=== PATIENT | female | born 1945 | race Caucasian/White ===

== ENCOUNTER 2016-11-25 12:11 | Inpatient (IN) | payer MEDICARE, BC ==
[2016-11-25] MEDS ORDERED: Loratadine 10 MG Tab PO PRN (16:49)
[2016-11-25] MEDS ORDERED: Fluticasone Propionate Nasal Spray 16 GM Bottle NASBOTH PRN (16:49)
[2016-11-25] MEDS ORDERED: guaiFENesin 600 MG Tab.ER PO PRN (16:49)
[2016-11-25] MEDS ORDERED: VANCOMYCIN IV SCH (17:00)
[2016-11-25] MEDS ORDERED: [UNRECOGNIZED DRUG - OTHER] IV SCH (17:00)
[2016-11-25] MEDS ORDERED: SOD CHLORIDE IV SCH (17:00)
[2016-11-25] MEDS ORDERED: Albuterol 8 GM Inhaler INH PRN (17:11)
[2016-11-25] MEDS: Atropine/Diphenoxylate 0.025-2.5 MG Tab PO PRN (17:29)
[2016-11-25] MEDS ORDERED: Nystatin Susp 100,000 Unit/ML 5 ML UD Cup PO SCH (17:30)
[2016-11-25] MEDS ORDERED: Nitroglycerin 0.4 MG Tab.SL SL PRN (18:00)
[2016-11-25] MEDS: Piperacillin/Tazobactam 4.5 GM Vial IV SCH (18:23)
[2016-11-25] MEDS: Albuterol 0.083% 2.5 MG/3 ML Neb Soln NEB PRN (18:24)
[2016-11-25] MEDS ORDERED: Dextran 70/Hypromellose/PF Ophth Soln 0.9 ML UD EYEBOTH PRN (18:30)
[2016-11-25] MEDS ORDERED: NEPAFENAC EYERT SCH (20:00)
[2016-11-25] MEDS ORDERED: Formoterol/Mometasone 200-5 MCG 8.8 GM Inhaler IH SCH (20:00)
[2016-11-25] MEDS: Sodium Chloride 0.9% 10 ML Syringe IV SCH (20:26)
[2016-11-25] MEDS: Cholecalciferol (Vitamin D3) 1,000 Unit Tab PO SCH (20:27)
[2016-11-25] MEDS: Carvedilol 12.5 MG Tab PO SCH (20:27)
[2016-11-25] MEDS: Nystatin Susp 100,000 Unit/ML 5 ML UD Cup PO SCH (20:28)
[2016-11-25] MEDS: Loperamide 2 MG Cap PO PRN (20:37)
[2016-11-25] MEDS: Heparin Sodium 100 Units/ML 3 ML Syringe IVPUSH SCH (21:41)
--- NOTE | 2016-11-26 00:39 | HP ---
DIAGNOSES: 1. MRSA pneumonia. 2. Severe chronic obstructive pulmonary disease. 3. Hypokalemia. 4. Hypertension. 5. Coronary artery disease. 6. Chronic anxiety disorder. 7. Chronic depression. 8. Diastolic congestive heart failure. 9. Chronic constipation. 10.History of thrush. SUMMARY OF ADMIT HISTORY AND PHYSICAL: The patient is a 71-year-old female who is transferred from [facility], after having been admitted there on 11/15/2016 until 11/25/2016 with suspect sepsis with pneumonia, which was found to be MRSA pneumonia. 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 She has had lung reduction surgery. She is noted to have severe COPD, oxygen dependent, hypertension, coronary artery disease. She was treated with Zosyn and then vancomycin was added. The patient was felt to need another 2 weeks worth of IV antibiotics. She did have a low potassium of 2.8 a day prior to discharge and that was increased with oral replacement. She was also treated with nystatin for some oral thrush and she has had some prednisone 40 mg daily for 5 days. The patient was treated with Vest to help improve removal of respiratory secretions and she presents for continued IV therapy with a PICC line present. Her medications at the time of transfer Lomotil 2.5/0.025 one pill 3 times a day as needed for diarrhea; Imodium 2 mg 2 capsules after first loose stool, then 1 p.r.n., no more than 8 per day; Nystatin 100 units/mL, she takes 5 mL 4 times a day for a total of 5 days; Zosyn 4.5 g every 8 hours for 19 days; sodium flushes per PICC line protocol; Spiriva 18 mcg capsules 1 puff daily; fluticasone nasal spray 1 sprain in the morning and in the evening if needed; Advair 250/50 one puff twice a day; potassium chloride 10 mEq 3 tablets daily for 3 days, then 1 tablet twice a day, which is her baseline dose; acapella inhaler 1 puff every 4 hours as needed; Tylenol 500 mg every 4 hours as needed; albuterol nebs 2.5 mg every 4 hours as needed; albuterol HFA 2 puffs every 4 hours as needed; aspirin 81 mg 1 pill daily; calcium with D 1500/800 one pill daily; carvedilol 12.5 mg half a pill in the morning, 1 pill in the evening; vitamin B12 1000 mcg 1 tablet daily; Prolia infusion 60 mg every 6 months; furosemide 40 mg half a pill Tuesday, Tuesday, Tuesday, one pill Tuesday, , Tuesday, Tuesday; guaifenesin 600 mg SR 1 pill twice a day as needed; loratadine 10 mg 1 pill daily as needed; losartan 100 mg 1 pill daily, nitroglycerin 0.3 mg sublingual q.5h minutes x3 p.r.n., omeprazole 20 mg 1 pill daily; oxygen therapy at 2 L at night, 4 L with activity; Sustain eyedrops 1 drop both eyes, every 4 hours, as needed; MiraLAX half a scoop in 8 ounces of water daily; Crestor 5 mg 1 pill daily; sertraline 100 mg 1 pill daily, vitamin D 3000 units 2 pills twice a day. To note, Lovenox will also be given for her. ALLERGIES: Leads, lisinopril, mold, panchito, felodipine, seasonal allergies, and environmental. PAST MEDICAL HISTORY: The patient has severe COPD. She had lung reduction surgery at [place] in 2010, on home oxygen. She was not a candidate for lung transplant due to Mycobacterium avium complex noted in [address]. She has had allergic rhinitis, amblyopia, anxiety, hyperventilation, arthritis, cataracts, chronic diastolic heart dysfunction. Echo on 01/04/2013 had ejection fraction 65%. She has mild pulmonary hypertension. She has had claudication of both extremities. LINDA testing done on 08/11/2016 came back normal. She has coronary artery disease. On 01/27/2010, she had 1 stent in her RCA at [place]; on 01/05/2013, had LAD, 1 drug-eluting stent on Plavix, more cardiac cath noted CT 11/2014, no disease. I am not certain when her Plavix was discontinued. She is on oxygen. She has had urticaria. She has had osteopenia, but was started on Fosamax due to possible surgery, was switched Prolia due to dyspepsia. She has had diverticula of colon, eczema, hypertension, gastroesophageal reflux disease, remote H-pylori infection. Colonoscopy on 01/29/2011. She had H-pylori in 2006. She has had MRSA in 2016, but she had negative test x2. She had hyperlipidemia, on Crestor. She has irritable bowel syndrome. 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 Mycobacterium infection in 2011, recurred in 2016, she has had neck pain, C5-6 radiation with epidural shot. She has had allergic rhinitis. Osteoporosis was in 2016 where she had been switched to Prolia infusions. She has had hypercholesterolemia, restless legs syndrome, toenail deformity, uveitis, vitamin B12 deficiency, vitamin D deficiency. PAST SURGICAL HISTORY: She had a breast lumpectomy on the right in 1987. Cataract surgery. She has had cholecystectomy. Colonoscopy was in 2010, next one was to be 10 years. She has had Dupuytren's release. She has had removal of lung on the right on 06/04/2011. She has had a cardiac stent, RCA in 2009; at [place] in 2012, LAD. FAMILY MEDICAL HISTORY: Mother has had heart disease and type 2 diabetes mellitus, and cataracts. Son has had rheumatoid arthritis. Sister has strabismus, retinal problems. SOCIAL HISTORY: The patient is . She formerly smoke. She quit in 2001. She has children. REVIEW OF SYSTEMS: Her mouth is better. She does have a chronic cough. No headache. She does have bruising from her PICC line. No nausea. She did have some diarrhea, no incontinence, no joint swelling, slight weakness of her lower extremities. She has been sleeping okay. She wears portable oxygen. Her weight has stayed the same. She does have some bruising. No headaches, no blurry vision, no double vision, no soreness in her mouth, no cough. Does get short of breath with activity. No chest pain. No breast masses. Does have occasional nausea. Does have diarrhea. No burning with urination. No swelling of extremities. No swollen joints. Does have some pain throughout her body. Does feel fatigued. Does get worried and anxious at times. PHYSICAL EXAMINATION: Vital Signs: Show that her height is 1.6 m. Her temperature is 36.8, pulse 75, blood pressure 126/72, respirations 16, sats 93% on 3 L. Skin: She has some bruising by her forearms and her legs. Her skin is noted to be pale. HEENT: Conjunctivae are clear. Pharynx is normal with moist mucous membranes. No thrush seen. Neck: Supple. No anterior cervical lymphadenopathy. No thyromegaly. Heart: Regular rate and rhythm without murmurs or bruits. Lungs: Have diminished breath sounds at bases but there is air exchange noted on bases. Breast exam: Deferred. Abdomen: Soft, nontender. No hepatosplenomegaly. Rectal: Deferred. Genital: Deferred. Extremities: Slender, thin. Neurologic: She moves all extremities symmetric. Psychiatric: She is alert, pleasant to visit with. Slightly anxious, does not maintain good eye contact. IMPRESSION: 1. MRSA pneumonia. 2. Severe chronic obstructive pulmonary disease. 3. Hypertension. 4. Chronic diastolic congestive heart failure. 5. Hypokalemia, recent. 6. Hypercholesterolemia. 7. Osteoporosis. PLAN: The patient will be placed on swing bed. She will receive her IV vancomycin and Zosyn per protocol until I believe 12/06/2016. She will have weekly CBC, AST monitoring. I will check lab work tomorrow on the patient. We will check a chest x-ray tomorrow as well to get a baseline here. I will have Technology Lab Teacher see the patient. The patient is code level 3 status, which means DNR/DNI, but will treat medical problems. Anticipate the patient to return home with her . The patient is using a flutter valve to help with lung expansion. To note, she had a Vest on when she was in [place] which did seem to help. The patient will be continued on Lovenox until she is ready to be discharged home. While she is on Lovenox, she will not need to have Plavix, but we will need to verify about Plavix use for patient. To note, the patient does have severe lung disorders and she is susceptible to having further worsening of her basic lung condition and she could possibly could have a prolonged recovery from her pneumonia or possibly from her current pneumonia process due to not much lung tissue that is working. The patient is placed in isolation because of her MRSA diagnosis at the present time. GM11/25/2016 17:27:59 MODL: 11/26/2016 00:13:30 /[id number]
[2016-11-26] MEDS ORDERED: Piperacillin/Tazobactam 3.375 GM in Sodium Chloride 0.9% 100 ML IV SCH ×2 (02:00→10:00)
[2016-11-26] MEDS: Sodium Chloride 0.9% 10 ML Syringe IV SCH ×4 (02:48→19:06)
[2016-11-26] MEDS: Piperacillin/Tazobactam 4.5 GM Vial IV SCH (03:15)
[2016-11-26] MEDS: ADVAIR INH SCH ×2 (06:23→19:57)
[2016-11-26] MEDS: TIOTROPIUM 18 MCG INH SCH (06:24)
[2016-11-26] MEDS: Heparin Sodium 100 Units/ML 3 ML Syringe IVPUSH SCH ×3 (06:47→19:06)
[2016-11-26] MEDS: Albuterol 0.083% 2.5 MG/3 ML Neb Soln NEB PRN ×3 (07:13→14:49)
[2016-11-26] MEDS ORDERED: Polyethylene Glycol 3350 Powder 238 GM Bot PO SCH (08:00)
[2016-11-26] MEDS ORDERED: Piperacillin/Tazobactam 4.5 GM in Sodium Chloride 0.9% 100 ML IV SCH (08:00)
[2016-11-26] MEDS: Sertraline 100 MG Tab PO SCH (08:03)
[2016-11-26] MEDS: Carvedilol 6.25 MG Tab PO SCH (08:03)
[2016-11-26] MEDS: Cholecalciferol (Vitamin D3) 1,000 Unit Tab PO SCH ×2 (08:03→19:54)
[2016-11-26] MEDS: Aspirin 81 MG Tab.EC PO SCH (08:03)
[2016-11-26] MEDS: Losartan 50 MG Tab PO SCH (08:04)
[2016-11-26] MEDS: Potassium Chloride 10 MEQ Tab.ER PO SCH (08:04)
[2016-11-26] MEDS: atorvaSTATin 10 MG Tab PO SCH (08:04)
[2016-11-26] MEDS: Loperamide 2 MG Cap PO PRN (08:04)
[2016-11-26] MEDS: Omeprazole 20 MG Cap.CR PO SCH (08:04)
[2016-11-26] MEDS: Nystatin Susp 100,000 Unit/ML 5 ML UD Cup PO SCH ×4 (08:05→19:54)
[2016-11-26] MEDS: Enoxaparin 30 MG/0.3 ML Syringe SUBCUT SCH (08:05)
[2016-11-26] MEDS: Calcium Carbonate/Vitamin D3 1250 MG-200 Unit Tab PO SCH (08:05)
[2016-11-26] MEDS: Cyanocobalamin (Vitamin B12) 1,000 MCG Tab PO SCH (08:05)
[2016-11-26] MEDS: Polyethylene Glycol 3350 Powder 17 GM Packet PO SCH (08:06)
[2016-11-26 08:31] LABS: CHLORIDE,CL 109 mmol/L (98-107); SODIUM,NA 144 mmol/L (136-145)
[2016-11-26] MEDS ORDERED: Furosemide 40 MG Tab PO SCH (09:00)
[2016-11-26] MEDS: Fluticasone Propionate Nasal Spray 16 GM Bottle NASBOTH SCH (09:07)
[2016-11-26] MEDS: Piperacillin/Tazobactam 4.5 GM in Sodium Chloride 0.9% 100 ML IV SCH ×2 (15:42→23:55)
[2016-11-26] MEDS: Carvedilol 12.5 MG Tab PO SCH (19:55)
[2016-11-27] MEDS: Sodium Chloride 0.9% 10 ML Syringe IV SCH ×4 (03:13→18:20)
[2016-11-27] MEDS: Heparin Sodium 100 Units/ML 3 ML Syringe IVPUSH SCH ×4 (03:14→18:20)
[2016-11-27] MEDS: ADVAIR INH SCH ×2 (06:20→19:25)
[2016-11-27] MEDS: TIOTROPIUM 18 MCG INH SCH (06:20)
[2016-11-27] MEDS: Albuterol 0.083% 2.5 MG/3 ML Neb Soln NEB PRN ×3 (07:19→20:27)
[2016-11-27] MEDS: Calcium Carbonate/Vitamin D3 1250 MG-200 Unit Tab PO SCH (07:35)
[2016-11-27] MEDS: Piperacillin/Tazobactam 4.5 GM in Sodium Chloride 0.9% 100 ML IV SCH ×3 (07:35→23:28)
[2016-11-27] MEDS: Losartan 50 MG Tab PO SCH (07:36)
[2016-11-27] MEDS: Aspirin 81 MG Tab.EC PO SCH (07:36)
[2016-11-27] MEDS: Cholecalciferol (Vitamin D3) 1,000 Unit Tab PO SCH ×2 (07:36→19:28)
[2016-11-27] MEDS: Omeprazole 20 MG Cap.CR PO SCH (07:36)
[2016-11-27] MEDS: Cyanocobalamin (Vitamin B12) 1,000 MCG Tab PO SCH (07:37)
[2016-11-27] MEDS: atorvaSTATin 10 MG Tab PO SCH (07:37)
[2016-11-27] MEDS: Sertraline 100 MG Tab PO SCH (07:37)
[2016-11-27] MEDS: Carvedilol 6.25 MG Tab PO SCH (07:37)
[2016-11-27] MEDS: Enoxaparin 30 MG/0.3 ML Syringe SUBCUT SCH (07:38)
[2016-11-27] MEDS: Potassium Chloride 10 MEQ Tab.ER PO SCH (07:38)
[2016-11-27] MEDS: Nystatin Susp 100,000 Unit/ML 5 ML UD Cup PO SCH ×4 (07:38→19:26)
[2016-11-27] MEDS: Polyethylene Glycol 3350 Powder 17 GM Packet PO SCH (07:41)
[2016-11-27] MEDS: Fluticasone Propionate Nasal Spray 16 GM Bottle NASBOTH SCH (07:42)
[2016-11-27] MEDS: Furosemide 40 MG Tab PO SCH (09:11)
[2016-11-27] MEDS: Carvedilol 12.5 MG Tab PO SCH (19:28)
[2016-11-27] MEDS: guaiFENesin 600 MG Tab.ER PO SCH (19:28)
[2016-11-28] MEDS: Heparin Sodium 100 Units/ML 3 ML Syringe IVPUSH SCH ×4 (01:47→18:02)
[2016-11-28] MEDS: Sodium Chloride 0.9% 10 ML Syringe IV SCH ×3 (01:47→18:01)
[2016-11-28] MEDS: ADVAIR INH SCH ×2 (06:08→19:54)
[2016-11-28] MEDS: TIOTROPIUM 18 MCG INH SCH (06:09)
[2016-11-28] MEDS: Albuterol 0.083% 2.5 MG/3 ML Neb Soln NEB PRN ×3 (07:19→19:52)
[2016-11-28] MEDS: Piperacillin/Tazobactam 4.5 GM in Sodium Chloride 0.9% 100 ML IV SCH ×2 (07:20→15:04)
[2016-11-28] MEDS: atorvaSTATin 10 MG Tab PO SCH (07:33)
[2016-11-28] MEDS: Fluticasone Propionate Nasal Spray 16 GM Bottle NASBOTH SCH (07:33)
[2016-11-28] MEDS: Omeprazole 20 MG Cap.CR PO SCH (07:34)
[2016-11-28] MEDS: guaiFENesin 600 MG Tab.ER PO SCH ×2 (07:34→19:53)
[2016-11-28] MEDS: Cholecalciferol (Vitamin D3) 1,000 Unit Tab PO SCH ×2 (07:34→19:53)
[2016-11-28] MEDS: Calcium Carbonate/Vitamin D3 1250 MG-200 Unit Tab PO SCH (07:34)
[2016-11-28] MEDS: Losartan 50 MG Tab PO SCH (07:34)
[2016-11-28] MEDS: Carvedilol 6.25 MG Tab PO SCH (07:34)
[2016-11-28] MEDS: Potassium Chloride 10 MEQ Tab.ER PO SCH (07:35)
[2016-11-28] MEDS: Sertraline 100 MG Tab PO SCH (07:35)
[2016-11-28] MEDS: Enoxaparin 30 MG/0.3 ML Syringe SUBCUT SCH (07:35)
[2016-11-28] MEDS: Nystatin Susp 100,000 Unit/ML 5 ML UD Cup PO SCH ×4 (07:35→19:52)
[2016-11-28] MEDS: Aspirin 81 MG Tab.EC PO SCH (07:35)
[2016-11-28] MEDS: Cyanocobalamin (Vitamin B12) 1,000 MCG Tab PO SCH (07:35)
[2016-11-28] MEDS: Polyethylene Glycol 3350 Powder 17 GM Packet PO SCH (07:36)
[2016-11-28] MEDS: Furosemide 40 MG Tab PO SCH (08:22)
[2016-11-28] MEDS: Carvedilol 12.5 MG Tab PO SCH (19:53)
[2016-11-29] MEDS: Sodium Chloride 0.9% 10 ML Syringe IV SCH ×5 (00:06→20:58)
[2016-11-29] MEDS: Piperacillin/Tazobactam 4.5 GM in Sodium Chloride 0.9% 100 ML IV SCH ×4 (00:08→23:42)
[2016-11-29] MEDS: Heparin Sodium 100 Units/ML 3 ML Syringe IVPUSH SCH ×5 (03:10→20:58)
[2016-11-29] MEDS: ADVAIR INH SCH ×2 (06:21→20:55)
[2016-11-29] MEDS: TIOTROPIUM 18 MCG INH SCH (06:22)
[2016-11-29] MEDS: Albuterol 0.083% 2.5 MG/3 ML Neb Soln NEB PRN ×3 (07:35→20:56)
[2016-11-29] MEDS ORDERED: Potassium Chloride 10 MEQ Tab.ER PO SCH (08:00)
[2016-11-29] MEDS: Enoxaparin 30 MG/0.3 ML Syringe SUBCUT SCH (08:45)
[2016-11-29] MEDS: Nystatin Susp 100,000 Unit/ML 5 ML UD Cup PO SCH ×4 (08:46→20:55)
[2016-11-29] MEDS: Sertraline 100 MG Tab PO SCH ×2 (08:46→09:07)
[2016-11-29] MEDS: Omeprazole 20 MG Cap.CR PO SCH (08:47)
[2016-11-29] MEDS: Losartan 50 MG Tab PO SCH (08:47)
[2016-11-29] MEDS: guaiFENesin 600 MG Tab.ER PO SCH ×2 (08:47→20:54)
[2016-11-29] MEDS: atorvaSTATin 10 MG Tab PO SCH (08:48)
[2016-11-29] MEDS: Aspirin 81 MG Tab.EC PO SCH (08:48)
[2016-11-29] MEDS: Calcium Carbonate/Vitamin D3 1250 MG-200 Unit Tab PO SCH (08:48)
[2016-11-29] MEDS: Polyethylene Glycol 3350 Powder 17 GM Packet PO SCH (08:49)
[2016-11-29] MEDS: Cyanocobalamin (Vitamin B12) 1,000 MCG Tab PO SCH (08:49)
[2016-11-29] MEDS: Cholecalciferol (Vitamin D3) 1,000 Unit Tab PO SCH ×2 (08:49→20:54)
[2016-11-29] MEDS: Fluticasone Propionate Nasal Spray 16 GM Bottle NASBOTH SCH (08:50)
[2016-11-29] MEDS ORDERED: Furosemide 20 MG Tab PO SCH (09:00)
[2016-11-29] MEDS: Carvedilol 6.25 MG Tab PO SCH (09:07)
[2016-11-29] MEDS: Carvedilol 12.5 MG Tab PO SCH ×2 (09:39→17:12)
--- NOTE | 2016-11-29 11:39 | PN ---
Progress Note for CHE HOLMAN Date: 11/29/2016 Room #: VM.212 SUBJECTIVE: The patient says that she has been feeling a little more tired. Her mood does feel a bit more down. She has been chronically on Zoloft and she has been on the same dose for quite some time. It is noted that her blood pressures have been running a little bit higher. Her oxygen sats this morning were low down to 84 while she was having the nebulized treatment without oxygen, but then oxygen was replaced and it did come back better. OBJECTIVE: Vital Signs: Her blood pressure is 150/84 this morning. Her pulse is 66, temperature is 36.4, respiratory rate is 20, and sats are 95 on 3 L. General: She appears little bit down. Skin: Pale. She has some bruising. Her right great toe does have granulation tissue at the base with some serosanguineous drainage. Heart: Regular rate and rhythm. Lungs: Clear to auscultation. Abdomen: Soft. Extremities: Cool. LABORATORY DATA: Her lab that has been drawn; her hemoglobin was 9.8, which is stable, white blood cell count 8.5, with platelets 185. AST was 21, CK was 18. Her vancomycin trough yesterday was elevated at 36. IMPRESSION: 1. Methicillin-resistant Staphylococcus aureus pneumonia. 2. Hypertension. 3. Anemia of chronic disease. 4. Granulation tissue of right great toe with next Methicillin-resistant Staphylococcus aureus pneumonia. 5. Severe chronic obstructive pulmonary disease. 6. Chronic depression. PLAN: We will increase her Zoloft to 150 mg a day. We will increase her carvedilol to 12.5 mg b.i.d. We will start doing daily soaks for her toe to see if this can help it heal up and vancomycin levels to be managed with pharmacy. The patient is to be on IV antibiotics until December 07, 2016. GM11/29/2016 08:23:41 MODL: 11/29/2016 10:42:01 /[id number]
[2016-11-29] MEDS: Potassium Chloride 10 MEQ Tab.ER PO SCH (17:13)
[2016-11-29] MEDS ORDERED: Carvedilol 12.5 MG Tab PO SCH (18:00)
[2016-11-29] MEDS: Acetaminophen 500 MG Tab PO PRN (20:54)
[2016-11-30] MEDS: Sodium Chloride 0.9% 10 ML Syringe IV SCH ×3 (03:27→17:32)
[2016-11-30] MEDS: Heparin Sodium 100 Units/ML 3 ML Syringe IVPUSH SCH ×4 (03:27→18:16)
[2016-11-30] MEDS: ADVAIR INH SCH ×2 (06:14→19:26)
[2016-11-30] MEDS: TIOTROPIUM 18 MCG INH SCH (06:15)
[2016-11-30] MEDS: Albuterol 0.083% 2.5 MG/3 ML Neb Soln NEB PRN ×4 (07:16→19:26)
[2016-11-30] MEDS: Calcium Carbonate/Vitamin D3 1250 MG-200 Unit Tab PO SCH (07:47)
[2016-11-30] MEDS: Aspirin 81 MG Tab.EC PO SCH (07:47)
[2016-11-30] MEDS: Potassium Chloride 10 MEQ Tab.ER PO SCH ×2 (07:47→17:31)
[2016-11-30] MEDS: Piperacillin/Tazobactam 4.5 GM in Sodium Chloride 0.9% 100 ML IV SCH ×2 (07:47→15:22)
[2016-11-30] MEDS: Cyanocobalamin (Vitamin B12) 1,000 MCG Tab PO SCH (07:47)
[2016-11-30] MEDS: Cholecalciferol (Vitamin D3) 1,000 Unit Tab PO SCH ×2 (07:47→19:25)
[2016-11-30] MEDS: Omeprazole 20 MG Cap.CR PO SCH (07:48)
[2016-11-30] MEDS: Furosemide 20 MG Tab PO SCH (07:48)
[2016-11-30] MEDS: atorvaSTATin 10 MG Tab PO SCH (07:48)
[2016-11-30] MEDS: Losartan 50 MG Tab PO SCH (07:48)
[2016-11-30] MEDS: Sertraline 100 MG Tab PO SCH (07:48)
[2016-11-30] MEDS: guaiFENesin 600 MG Tab.ER PO SCH ×2 (07:49→19:25)
[2016-11-30] MEDS: Carvedilol 12.5 MG Tab PO SCH ×2 (07:49→17:31)
[2016-11-30] MEDS: Enoxaparin 30 MG/0.3 ML Syringe SUBCUT SCH (07:49)
[2016-11-30] MEDS: Fluticasone Propionate Nasal Spray 16 GM Bottle NASBOTH SCH (07:50)
[2016-11-30] MEDS: Nystatin Susp 100,000 Unit/ML 5 ML UD Cup PO SCH ×3 (07:51→15:23)
[2016-11-30] MEDS: Polyethylene Glycol 3350 Powder 17 GM Packet PO SCH (07:51)
--- NOTE | 2016-11-30 08:36 | PCM.SN ---
- Free Text/Narrative Note: BP is increasing. She used to be on amlodipine. Despite increasing coreg yesterday, her BP today is high. Will resume amlodipine at 5 mg dialy.
[2016-11-30] MEDS ORDERED: Vancomycin 500 MG SDV ONE (10:05)
[2016-11-30] MEDS ORDERED: Sodium Chloride 0.9% 100 ML ONE (10:05)
[2016-11-30] MEDS: amLODIPine 5 MG Tab PO SCH (10:07)
[2016-11-30] MEDS: Acetaminophen 500 MG Tab PO PRN (19:25)
[2016-12-01] MEDS: Piperacillin/Tazobactam 4.5 GM in Sodium Chloride 0.9% 100 ML IV SCH ×4 (00:56→23:01)
[2016-12-01] MEDS: Sodium Chloride 0.9% 10 ML Syringe IV SCH ×3 (02:00→20:21)
[2016-12-01] MEDS: Heparin Sodium 100 Units/ML 3 ML Syringe IVPUSH SCH ×3 (03:00→20:22)
[2016-12-01] MEDS: ADVAIR INH SCH ×2 (06:13→19:48)
[2016-12-01] MEDS: TIOTROPIUM 18 MCG INH SCH (06:14)
[2016-12-01] MEDS: Albuterol 0.083% 2.5 MG/3 ML Neb Soln NEB PRN ×4 (07:15→19:48)
[2016-12-01] MEDS: Enoxaparin 30 MG/0.3 ML Syringe SUBCUT SCH (08:44)
[2016-12-01] MEDS: Furosemide 20 MG Tab PO SCH (08:45)
[2016-12-01] MEDS: amLODIPine 5 MG Tab PO SCH (08:45)
[2016-12-01] MEDS: Aspirin 81 MG Tab.EC PO SCH (08:45)
[2016-12-01] MEDS: Cholecalciferol (Vitamin D3) 1,000 Unit Tab PO SCH ×2 (08:46→19:48)
[2016-12-01] MEDS: guaiFENesin 600 MG Tab.ER PO SCH ×2 (08:46→19:48)
[2016-12-01] MEDS: Omeprazole 20 MG Cap.CR PO SCH (08:46)
[2016-12-01] MEDS: Cyanocobalamin (Vitamin B12) 1,000 MCG Tab PO SCH (08:47)
[2016-12-01] MEDS: Carvedilol 12.5 MG Tab PO SCH ×3 (08:47→17:12)
[2016-12-01] MEDS: Calcium Carbonate/Vitamin D3 1250 MG-200 Unit Tab PO SCH (08:49)
[2016-12-01] MEDS: atorvaSTATin 10 MG Tab PO SCH (08:49)
[2016-12-01] MEDS: Sertraline 100 MG Tab PO SCH (08:49)
[2016-12-01] MEDS: Losartan 50 MG Tab PO SCH (08:50)
[2016-12-01] MEDS: Potassium Chloride 10 MEQ Tab.ER PO SCH ×3 (08:50→17:13)
[2016-12-01] MEDS: Fluticasone Propionate Nasal Spray 16 GM Bottle NASBOTH SCH (08:51)
[2016-12-01] MEDS: Polyethylene Glycol 3350 Powder 17 GM Packet PO SCH (08:51)
[2016-12-01] MEDS: Loperamide 2 MG Cap PO PRN (11:53)
[2016-12-01] MEDS: Acetaminophen 500 MG Tab PO PRN (19:48)
[2016-12-02] MEDS: Sodium Chloride 0.9% 10 ML Syringe IV SCH ×3 (02:00→19:30)
[2016-12-02] MEDS: Heparin Sodium 100 Units/ML 3 ML Syringe IVPUSH SCH ×4 (03:00→19:31)
[2016-12-02] MEDS: TIOTROPIUM 18 MCG INH SCH (06:31)
[2016-12-02] MEDS: ADVAIR INH SCH ×2 (06:33→19:51)
[2016-12-02] MEDS: Albuterol 0.083% 2.5 MG/3 ML Neb Soln NEB PRN ×4 (07:22→19:47)
[2016-12-02] MEDS: Enoxaparin 30 MG/0.3 ML Syringe SUBCUT SCH (07:49)
[2016-12-02] MEDS: Calcium Carbonate/Vitamin D3 1250 MG-200 Unit Tab PO SCH (07:50)
[2016-12-02] MEDS: Carvedilol 12.5 MG Tab PO SCH ×2 (07:51→18:13)
[2016-12-02] MEDS: Furosemide 20 MG Tab PO SCH (07:51)
[2016-12-02] MEDS: Sertraline 100 MG Tab PO SCH (07:53)
[2016-12-02] MEDS: Aspirin 81 MG Tab.EC PO SCH (07:53)
[2016-12-02] MEDS: Losartan 50 MG Tab PO SCH (07:54)
[2016-12-02] MEDS: amLODIPine 5 MG Tab PO SCH (07:55)
[2016-12-02] MEDS: Omeprazole 20 MG Cap.CR PO SCH (07:55)
[2016-12-02] MEDS: guaiFENesin 600 MG Tab.ER PO SCH ×2 (07:55→19:37)
[2016-12-02] MEDS: Cholecalciferol (Vitamin D3) 1,000 Unit Tab PO SCH ×2 (07:55→19:38)
[2016-12-02] MEDS: atorvaSTATin 10 MG Tab PO SCH (07:55)
[2016-12-02] MEDS: Potassium Chloride 10 MEQ Tab.ER PO SCH ×2 (07:56→18:13)
[2016-12-02] MEDS: Polyethylene Glycol 3350 Powder 17 GM Packet PO SCH (07:56)
[2016-12-02] MEDS: Cyanocobalamin (Vitamin B12) 1,000 MCG Tab PO SCH (07:56)
[2016-12-02] MEDS: Piperacillin/Tazobactam 4.5 GM in Sodium Chloride 0.9% 100 ML IV SCH ×2 (07:57→16:09)
[2016-12-02] MEDS: Loperamide 2 MG Cap PO PRN (07:57)
[2016-12-02] MEDS: Fluticasone Propionate Nasal Spray 16 GM Bottle NASBOTH SCH (08:04)
[2016-12-02] MEDS: ALPRAZolam 0.25 MG Tab PO PRN (09:07)
[2016-12-03] MEDS: Piperacillin/Tazobactam 4.5 GM in Sodium Chloride 0.9% 100 ML IV SCH ×3 (00:10→16:08)
[2016-12-03] MEDS: Heparin Sodium 100 Units/ML 3 ML Syringe IVPUSH SCH ×3 (03:23→19:35)
[2016-12-03] MEDS: Sodium Chloride 0.9% 10 ML Syringe IV SCH ×4 (03:23→19:35)
[2016-12-03] MEDS: Loperamide 2 MG Cap PO PRN (03:25)
[2016-12-03] MEDS: Albuterol 0.083% 2.5 MG/3 ML Neb Soln NEB PRN ×5 (03:25→20:01)
[2016-12-03] MEDS: TIOTROPIUM 18 MCG INH SCH (06:53)
[2016-12-03] MEDS: ADVAIR INH SCH ×2 (06:53→20:07)
[2016-12-03] MEDS: guaiFENesin 600 MG Tab.ER PO SCH ×2 (08:18→20:09)
[2016-12-03] MEDS: Calcium Carbonate/Vitamin D3 1250 MG-200 Unit Tab PO SCH (08:18)
[2016-12-03] MEDS: Omeprazole 20 MG Cap.CR PO SCH (08:18)
[2016-12-03] MEDS: Aspirin 81 MG Tab.EC PO SCH (08:19)
[2016-12-03] MEDS: Cholecalciferol (Vitamin D3) 1,000 Unit Tab PO SCH ×2 (08:19→20:09)
[2016-12-03] MEDS: Cyanocobalamin (Vitamin B12) 1,000 MCG Tab PO SCH (08:19)
[2016-12-03] MEDS: Potassium Chloride 10 MEQ Tab.ER PO SCH ×2 (08:19→17:42)
[2016-12-03] MEDS: atorvaSTATin 10 MG Tab PO SCH (08:19)
[2016-12-03] MEDS: Furosemide 20 MG Tab PO SCH (08:20)
[2016-12-03] MEDS: Sertraline 100 MG Tab PO SCH (08:20)
[2016-12-03] MEDS: Carvedilol 12.5 MG Tab PO SCH ×2 (08:20→17:42)
[2016-12-03] MEDS: Losartan 50 MG Tab PO SCH (08:21)
[2016-12-03] MEDS: amLODIPine 5 MG Tab PO SCH (08:21)
[2016-12-03] MEDS: Enoxaparin 30 MG/0.3 ML Syringe SUBCUT SCH (08:22)
[2016-12-03] MEDS: Polyethylene Glycol 3350 Powder 17 GM Packet PO SCH (08:23)
[2016-12-03] MEDS: Fluticasone Propionate Nasal Spray 16 GM Bottle NASBOTH SCH (08:23)
[2016-12-03] MEDS: ALPRAZolam 0.25 MG Tab PO PRN (20:09)
[2016-12-04] MEDS: Piperacillin/Tazobactam 4.5 GM in Sodium Chloride 0.9% 100 ML IV SCH ×3 (00:07→15:58)
[2016-12-04] MEDS: Sodium Chloride 0.9% 10 ML Syringe IV SCH ×3 (03:30→19:41)
[2016-12-04] MEDS: Heparin Sodium 100 Units/ML 3 ML Syringe IVPUSH SCH ×3 (03:30→19:41)
[2016-12-04] MEDS: TIOTROPIUM 18 MCG INH SCH (06:46)
[2016-12-04] MEDS: ADVAIR INH SCH ×2 (06:47→19:42)
[2016-12-04] MEDS: Albuterol 0.083% 2.5 MG/3 ML Neb Soln NEB PRN ×4 (06:57→20:16)
[2016-12-04] MEDS: Sertraline 100 MG Tab PO SCH (08:34)
[2016-12-04] MEDS: Potassium Chloride 10 MEQ Tab.ER PO SCH ×2 (08:34→18:01)
[2016-12-04] MEDS: Cholecalciferol (Vitamin D3) 1,000 Unit Tab PO SCH ×2 (08:36→19:41)
[2016-12-04] MEDS: Omeprazole 20 MG Cap.CR PO SCH (08:36)
[2016-12-04] MEDS: Aspirin 81 MG Tab.EC PO SCH (08:36)
[2016-12-04] MEDS: Furosemide 20 MG Tab PO SCH (08:37)
[2016-12-04] MEDS: atorvaSTATin 10 MG Tab PO SCH (08:37)
[2016-12-04] MEDS: Cyanocobalamin (Vitamin B12) 1,000 MCG Tab PO SCH (08:37)
[2016-12-04] MEDS: guaiFENesin 600 MG Tab.ER PO SCH ×2 (08:37→19:41)
[2016-12-04] MEDS: Calcium Carbonate/Vitamin D3 1250 MG-200 Unit Tab PO SCH (08:37)
[2016-12-04] MEDS: amLODIPine 5 MG Tab PO SCH (08:38)
[2016-12-04] MEDS: Carvedilol 12.5 MG Tab PO SCH ×2 (08:38→18:00)
[2016-12-04] MEDS: Losartan 50 MG Tab PO SCH (08:38)
[2016-12-04] MEDS: Fluticasone Propionate Nasal Spray 16 GM Bottle NASBOTH SCH (08:39)
[2016-12-04] MEDS: Enoxaparin 30 MG/0.3 ML Syringe SUBCUT SCH (08:39)
[2016-12-04] MEDS: Polyethylene Glycol 3350 Powder 17 GM Packet PO SCH (08:41)
--- NOTE | 2016-12-04 12:48 | PCM.SN ---
- Free Text/Narrative Note: S: Asked by nursing to see this patient today due to decreased breath sounds RLL and hypoxia when up and around. Patient states she has the "wet" cough still but that she cannot get the sputum all the way up. She has stable shortness of breath and no chest pain. She has not had any fever or chills. She notes that sometimes her oxygen does drop with ambulation at home as well and there is nothing really different today than other days she has had. She is also concerned about her elevated blood pressures. She does admit she may have overdone it yesterday with walking in the hallways and having visitors. O: Resting at the side of the bed in no acute distress. RRR with normal S1 and S2. No murmurs. Lungs are currently CTAB. Abdomen soft, nontender. No pedal edema. A/P: #1 MRSA Pneumonia #2 Hypoxia - In the absence of any acute changes in symptoms, oxygen saturations, and lung exams, I do not feel any further work-up is indicated at this time. - Labs from 2 days ago reviewed and stable. - CXR unlikely to be helpful in the setting of a clear lung exam. - At this point, I would continue current cares and observe. - We did review that MRSA pneumonia tends to be quite severe and it will likely take her quite a long time to recover from this in the setting of her underlying COPD. - Recommend rest today and no visitors. - I will check on her tomorrow. She and her are comfortable with this plan. #3 Hypertension - BP recheck now reportedly normal. - Will ask nursing staff to check BPs around 10 am instead so that her am medications have had a chance to kick in fully. Isi Pan MD
[2016-12-04] MEDS: Atropine/Diphenoxylate 0.025-2.5 MG Tab PO PRN (15:58)
[2016-12-05] MEDS: Sodium Chloride 0.9% 100 ML IV PRN (00:10)
[2016-12-05] MEDS: Piperacillin/Tazobactam 4.5 GM in Sodium Chloride 0.9% 100 ML IV SCH ×3 (00:10→15:55)
[2016-12-05] MEDS: Sodium Chloride 0.9% 10 ML Syringe IV SCH ×4 (00:11→19:16)
[2016-12-05] MEDS: ALPRAZolam 0.25 MG Tab PO PRN ×2 (00:18→22:11)
[2016-12-05] MEDS: Heparin Sodium 100 Units/ML 3 ML Syringe IVPUSH SCH ×3 (04:20→19:16)
[2016-12-05] MEDS: ADVAIR INH SCH ×2 (06:50→20:21)
[2016-12-05] MEDS: TIOTROPIUM 18 MCG INH SCH (06:51)
[2016-12-05] MEDS: Albuterol 0.083% 2.5 MG/3 ML Neb Soln NEB PRN ×4 (07:05→20:15)
[2016-12-05] MEDS: Atropine/Diphenoxylate 0.025-2.5 MG Tab PO PRN (07:35)
[2016-12-05] MEDS: Potassium Chloride 10 MEQ Tab.ER PO SCH ×2 (08:50→18:04)
[2016-12-05] MEDS: Aspirin 81 MG Tab.EC PO SCH (08:51)
[2016-12-05] MEDS: Cyanocobalamin (Vitamin B12) 1,000 MCG Tab PO SCH (08:51)
[2016-12-05] MEDS: Losartan 50 MG Tab PO SCH (08:51)
[2016-12-05] MEDS: atorvaSTATin 10 MG Tab PO SCH (08:51)
[2016-12-05] MEDS: Sertraline 100 MG Tab PO SCH (08:51)
[2016-12-05] MEDS: guaiFENesin 600 MG Tab.ER PO SCH ×2 (08:52→20:18)
[2016-12-05] MEDS: Calcium Carbonate/Vitamin D3 1250 MG-200 Unit Tab PO SCH (08:52)
[2016-12-05] MEDS: Enoxaparin 30 MG/0.3 ML Syringe SUBCUT SCH (08:52)
[2016-12-05] MEDS: amLODIPine 5 MG Tab PO SCH (08:52)
[2016-12-05] MEDS: Carvedilol 12.5 MG Tab PO SCH ×2 (08:52→18:05)
[2016-12-05] MEDS: Omeprazole 20 MG Cap.CR PO SCH (08:52)
[2016-12-05] MEDS: Furosemide 20 MG Tab PO SCH (08:52)
[2016-12-05] MEDS: Cholecalciferol (Vitamin D3) 1,000 Unit Tab PO SCH ×2 (08:53→20:18)
[2016-12-05] MEDS: Polyethylene Glycol 3350 Powder 17 GM Packet PO SCH (08:53)
[2016-12-05] MEDS: Fluticasone Propionate Nasal Spray 16 GM Bottle NASBOTH SCH (08:56)
--- NOTE | 2016-12-05 13:26 | PCM.SN ---
- Free Text/Narrative Note: Checked on patient today as discussed yesterday. No change in symptoms. No new concerns. CBC reviewed. No change to plan.
[2016-12-05] MEDS: Loperamide 2 MG Cap PO PRN (17:32)
[2016-12-05] MEDS: Acetaminophen 500 MG Tab PO PRN (20:19)
[2016-12-06] MEDS: Piperacillin/Tazobactam 4.5 GM in Sodium Chloride 0.9% 100 ML IV SCH ×3 (00:05→15:15)
[2016-12-06] MEDS: Sodium Chloride 0.9% 10 ML Syringe IV SCH ×4 (00:06→18:34)
[2016-12-06] MEDS: Heparin Sodium 100 Units/ML 3 ML Syringe IVPUSH SCH ×3 (03:27→18:34)
[2016-12-06] MEDS: TIOTROPIUM 18 MCG INH SCH (06:33)
[2016-12-06] MEDS: ADVAIR INH SCH ×2 (06:33→20:08)
[2016-12-06] MEDS: Albuterol 0.083% 2.5 MG/3 ML Neb Soln NEB PRN ×4 (07:09→20:09)
[2016-12-06] MEDS: Potassium Chloride 10 MEQ Tab.ER PO SCH ×2 (08:38→17:26)
[2016-12-06] MEDS: Aspirin 81 MG Tab.EC PO SCH (08:38)
[2016-12-06] MEDS: Omeprazole 20 MG Cap.CR PO SCH (08:39)
[2016-12-06] MEDS: Cyanocobalamin (Vitamin B12) 1,000 MCG Tab PO SCH (08:39)
[2016-12-06] MEDS: Calcium Carbonate/Vitamin D3 1250 MG-200 Unit Tab PO SCH (08:39)
[2016-12-06] MEDS: guaiFENesin 600 MG Tab.ER PO SCH ×2 (08:39→20:08)
[2016-12-06] MEDS: Sertraline 100 MG Tab PO SCH (08:40)
[2016-12-06] MEDS: Carvedilol 12.5 MG Tab PO SCH ×2 (08:40→17:26)
[2016-12-06] MEDS: Cholecalciferol (Vitamin D3) 1,000 Unit Tab PO SCH ×2 (08:41→20:08)
[2016-12-06] MEDS: amLODIPine 5 MG Tab PO SCH (08:41)
[2016-12-06] MEDS: Losartan 50 MG Tab PO SCH (08:43)
[2016-12-06] MEDS: atorvaSTATin 10 MG Tab PO SCH (08:43)
[2016-12-06] MEDS: Furosemide 20 MG Tab PO SCH (08:44)
[2016-12-06] MEDS: Enoxaparin 30 MG/0.3 ML Syringe SUBCUT SCH (08:44)
[2016-12-06] MEDS: Fluticasone Propionate Nasal Spray 16 GM Bottle NASBOTH SCH (08:45)
[2016-12-06] MEDS: Polyethylene Glycol 3350 Powder 17 GM Packet PO SCH (08:46)
[2016-12-06] MEDS: Loperamide 2 MG Cap PO PRN (08:55)
[2016-12-07] MEDS: Piperacillin/Tazobactam 4.5 GM in Sodium Chloride 0.9% 100 ML IV SCH ×3 (00:14→16:20)
[2016-12-07] MEDS: Heparin Sodium 100 Units/ML 3 ML Syringe IVPUSH SCH ×3 (03:40→19:43)
[2016-12-07] MEDS: Sodium Chloride 0.9% 10 ML Syringe IV SCH ×3 (03:40→19:42)
[2016-12-07] MEDS: ADVAIR INH SCH ×2 (06:21→19:47)
[2016-12-07] MEDS: TIOTROPIUM 18 MCG INH SCH (06:22)
[2016-12-07] MEDS: Albuterol 0.083% 2.5 MG/3 ML Neb Soln NEB PRN ×4 (07:10→19:56)
[2016-12-07] MEDS: Cholecalciferol (Vitamin D3) 1,000 Unit Tab PO SCH ×2 (08:16→19:46)
[2016-12-07] MEDS: Enoxaparin 30 MG/0.3 ML Syringe SUBCUT SCH (08:16)
[2016-12-07] MEDS: Aspirin 81 MG Tab.EC PO SCH (08:16)
[2016-12-07] MEDS: atorvaSTATin 10 MG Tab PO SCH (08:16)
[2016-12-07] MEDS: Sertraline 100 MG Tab PO SCH (08:17)
[2016-12-07] MEDS: Potassium Chloride 10 MEQ Tab.ER PO SCH ×2 (08:17→17:27)
[2016-12-07] MEDS: Omeprazole 20 MG Cap.CR PO SCH (08:17)
[2016-12-07] MEDS: Furosemide 20 MG Tab PO SCH (08:17)
[2016-12-07] MEDS: Cyanocobalamin (Vitamin B12) 1,000 MCG Tab PO SCH (08:17)
[2016-12-07] MEDS: Losartan 50 MG Tab PO SCH (08:17)
[2016-12-07] MEDS: Calcium Carbonate/Vitamin D3 1250 MG-200 Unit Tab PO SCH (08:17)
[2016-12-07] MEDS: amLODIPine 5 MG Tab PO SCH (08:17)
[2016-12-07] MEDS: guaiFENesin 600 MG Tab.ER PO SCH ×2 (08:17→19:46)
[2016-12-07] MEDS: Fluticasone Propionate Nasal Spray 16 GM Bottle NASBOTH SCH (08:18)
[2016-12-07] MEDS: Carvedilol 12.5 MG Tab PO SCH ×2 (08:18→17:27)
[2016-12-07] MEDS: Polyethylene Glycol 3350 Powder 17 GM Packet PO SCH (08:18)
[2016-12-07] MEDS: Sodium Chloride 0.9% 100 ML IV PRN (08:27)
--- NOTE | 2016-12-07 09:31 | PN ---
Progress Note for CHE HOLMAN Date: 12/07/2016 Room #: VM.212 SUBJECTIVE: The patient is feeling better. She still is not back to her full level of energy, but better. She still has an occasional cough, which is more related to her chronic COPD, occasional diarrhea. She has not need to use any Xanax. Her blood pressure has come under better control with the addition of amlodipine. The patient is not using any Xanax, while she has been here. OBJECTIVE: Vital Signs: The patient's pulse is 75, blood pressure is 137/73, respiratory rate is 20, saturations are 92% on 3 L, weight is pending. Skin: [employer], warm, and dry. PICC site looks okay. Heart: Regular rate and rhythm. Lungs: Have diminished breath sounds on bases bilaterally. No crackles or wheezes. Abdomen: Soft. Extremities: No edema. LABORATORY DATA: Lab work that was done yesterday showed her white blood cell count 11.2, hemoglobin 10.6, platelets are 231, with 79 neutrophils, 7 lymphocytes, 5 eosinophils. Sodium 145, potassium 4.2, creatinine 1.2. GFR is 44. Glucose 98. Vancomycin trough had been 14. IMPRESSION: 1. Methicillin-resistant Staphylococcus aureus pneumonia. 2. Severe chronic obstructive pulmonary disease. 3. Hypertension. 4. Chronic anxiety disorder. 5. Chronic depression. 6. Hypoxemia. 7. Hypokalemia, which is corrected. 8. Granulation tissue of toe. PLAN: The patient will finish her IV infusions tonight. She will go home tomorrow. She will return to see me in a week's time for an outpatient and a week as well as Infectious Disease. We will stop her Lovenox at the time of discharge. Also, need to inquire about her toe for granulation tissue. Actually, toe is looking better after using antibiotics, have on soaking daily. GM12/07/2016 08:36:07 MODL: 12/07/2016 09:22:09 /[id number]
[2016-12-07 10:33] VITALS: BP 144/73
[2016-12-07] MEDS: Acetaminophen 500 MG Tab PO PRN (23:07)
[2016-12-08] MEDS: Sodium Chloride 0.9% 10 ML Syringe IV SCH (01:25)
[2016-12-08] MEDS: TIOTROPIUM 18 MCG INH SCH (06:25)
[2016-12-08] MEDS: ADVAIR INH SCH (06:25)
[2016-12-08] MEDS: Albuterol 0.083% 2.5 MG/3 ML Neb Soln NEB PRN (06:59)
[2016-12-08] MEDS: Enoxaparin 30 MG/0.3 ML Syringe SUBCUT SCH (08:31)
[2016-12-08] MEDS: Omeprazole 20 MG Cap.CR PO SCH (08:31)
[2016-12-08] MEDS: Potassium Chloride 10 MEQ Tab.ER PO SCH (08:31)
[2016-12-08] MEDS: Losartan 50 MG Tab PO SCH (08:32)
[2016-12-08] MEDS: Carvedilol 12.5 MG Tab PO SCH (08:32)
[2016-12-08] MEDS: guaiFENesin 600 MG Tab.ER PO SCH (08:32)
[2016-12-08] MEDS: Cholecalciferol (Vitamin D3) 1,000 Unit Tab PO SCH (08:32)
[2016-12-08] MEDS: Calcium Carbonate/Vitamin D3 1250 MG-200 Unit Tab PO SCH (08:32)
[2016-12-08] MEDS: amLODIPine 5 MG Tab PO SCH (08:32)
[2016-12-08] MEDS: Furosemide 20 MG Tab PO SCH (08:32)
[2016-12-08] MEDS: Sertraline 100 MG Tab PO SCH (08:32)
[2016-12-08] MEDS: Aspirin 81 MG Tab.EC PO SCH (08:33)
[2016-12-08] MEDS: Cyanocobalamin (Vitamin B12) 1,000 MCG Tab PO SCH (08:33)
[2016-12-08] MEDS: Polyethylene Glycol 3350 Powder 17 GM Packet PO SCH (08:33)
[2016-12-08] MEDS: atorvaSTATin 10 MG Tab PO SCH (08:33)
[2016-12-08] MEDS: Fluticasone Propionate Nasal Spray 16 GM Bottle NASBOTH SCH (08:33)
--- NOTE | 2016-12-11 01:36 | DISCH ---
PRIMARY DIAGNOSES: 1. Methicillin-resistant Staphylococcus aureus pneumonia. 2. Severe chronic obstructive pulmonary disease. 3. Hypertension. 4. Chronic anxiety disorder. 5. Chronic depression. 6. Hypoxemia. 7. Hypokalemia. 8. Granulation tissue of her toe. SUMMARY OF ADMIT H AND P: The patient had been hospitalized at [facility] on 11/15/2016 until 11/25/2016 with severe shortness of breath suspected sepsis. She was found to have MRSA pneumonia and Mycobacterium avium complex was ruled out. The patient had previous lung reduction surgery and has known severe COPD, she was initially treated with Zosyn and vancomycin and then had to come here to have another 2 weeks with antibiotics. Potassium had also been low on acute care. She had been on a tapering dose of prednisone as well as had a chest vest to help with lung secretions. SUMMARY OF SWING BED COURSE: The patient received antibiotics through her PICC line. She did have some problems with anxiety with elevated blood pressure. Her blood pressure medications had been increased, but then actually she did improve with use of anxiolytics and her diuretic medications were increased. The patient had thrush while she was on acute care and had been continued on her course of nystatin, which her thrush did resolve while she was hospitalized. Her dose of Zoloft was increased because of her mood was more anxious. Also her carvedilol was increased to help manage with her blood pressure and she did have amlodipine resumed to help with blood pressure control. The patient was up ambulating well. She had been on Lovenox while she had been inpatient, this was stopped at the time of discharge. To note, patient had some granulation tissue on her left great toe from a previous toenail removal and so we did advance cares with using soapy water for better cares as well as daily dressing changes. It did seem to improve. MEDICATIONS: At the time of discharge on 12/08/2016 are vitamin D a 1000 units 2 pills twice a day, loratadine 10 mg 1 pill daily as needed, aspirin 81 mg 2 pills daily, acetaminophen 500 mg 1 pill every 4 hours as needed, Systane eye drops, 1 drop both eyes every 4 Hours as needed, Spiriva 18 mcg inhaler 1 capsule daily, omeprazole 20 mg 1 pill daily, albuterol HFA 2 puffs q.4 hours p.r.n., nitroglycerin 0.3 mg sublingual q.5 minutes x3 p.r.n., losartan was 100 mg 1 pill daily, Crestor 20 mg tablet she takes 5 mg daily, potassium chloride 10 mEq 3 pill twice a day, Advair 250/50 one puff twice a day, calcium with vitamin D 1 pill daily, Flonase 1 puff once a day as needed, and 1 puff daily scheduled, albuterol nebs 2.5 q.4 hours p.r.n., furosemide 40 mg 1 pill daily, Imodium 2 mg p.r.n., Lomotil 1 pill 3 times a day as needed, guaifenesin 600 mg b.i.d. p.r.n. nystatin 5 mg p.o. q.i.d. p.r.n., vitamin B12 1000 mcg daily, amlodipine 5 mg daily, carvedilol 12.5 mg b.i.d., Lasix 20 mg daily, sertraline is 100 mg 1.5 pills daily. RECOMMENDATIONS: The patient is to follow up with Infectious Disease in a week's time and follow up with myself also in a week's time. Her activity can be as tolerated. She wears her oxygen 3 L at rest, 5 L with activity. Her PICC line was removed at the time of discharge. Her diet can be regular. The patient's code level status at this hospitalization was code level 3, which means DNR/DNI. The patient was encouraged to continue to be as active as possible. GM12/10/2016 17:04:00 MODL: 12/11/2016 01:29:15 /[id number]
== END 2016-12-08 10:23 | disposition home or self-care (01) | DRG 178 ==
LOC: VM.MS 13:14
PROVIDERS: ADMIT Family Medicine; ATTEND Family Medicine
DX: J15.212 Pneumonia due to Methicillin resistant Staphylococcus aureus (principal); I50.32 Chronic diastolic (congestive) heart failure; B37.0 Candidal stomatitis; J44.9 Chronic obstructive pulmonary disease, unspecified; I11.0 Hypertensive heart disease with heart failure; Z66 Do not resuscitate; I25.10 Atherosclerotic heart disease of native coronary artery without angina pectoris; F41.8 Other specified anxiety disorders; F32.89 Other specified depressive episodes; K59.09 Other constipation; Z99.81 Dependence on supplemental oxygen; E87.6 Hypokalemia; Z95.5 Presence of coronary angioplasty implant and graft; Z87.891 Personal history of nicotine dependence; M81.0 Age-related osteoporosis without current pathological fracture; D63.8 Anemia in other chronic diseases classified elsewhere; E78.5 Hyperlipidemia, unspecified; R09.02 Hypoxemia; L92.8 Other granulomatous disorders of the skin and subcutaneous tissue; Z88.8 Allergy status to other drugs, medicaments and biological substances; Z91.048 Other nonmedicinal substance allergy status
CPT/HCPCS: 36415; 71020; 80048; 80202; 82550; 82565; 83735; 84450; 85025; 85027; 86140; 93005; 94640-76; 94668; 94760; 97161-GP; 97165-GO; A9270-GY; J1642; J1650; J2543; J3370; J7050; J7620-GY

== ENCOUNTER 2017-02-03 18:04 | Emergency (ER) | payer MEDICARE, BC ==
[2017-02-03] MEDS ORDERED: Sodium Chloride 0.9% 10 ML Syringe FLUSH PRN ×2 (18:10→19:46)
[2017-02-03] MEDS ORDERED: Levalbuterol HCl 1.25 MG/0.5 ML Neb NEB ONE (18:10)
[2017-02-03] MEDS ORDERED: methylPREDNISolone Sodium Succinate 125 MG/2 ML SDV IVPUSH ONE (18:11)
--- NOTE | 2017-02-03 18:23 | EDM.PDOC ---
ED HPI GENERAL MEDICAL PROBLEM - General Chief Complaint: Respiratory Problem Stated Complaint: Shortness of Breath Time Seen by Provider: 02/03/17 18:06 Source of Information: Reports: Patient, Family, RN, RN Notes Reviewed History Limitations: Reports: No Limitations - History of Present Illness INITIAL COMMENTS - FREE TEXT/NARRATIVE: Patient presents to the ED at [facility] with worsening SOB. Patient states her symptoms started 2-3 days ago and have progressively gotten worse. She has a long standing history of severe COPD with several exacerbations over the past few years. Denies any cough. Feels dizzy. No fall. No head trauma. Patient denies any chest pain. No focal neurological deficits. Denies any N/V/D. Duration: Getting Worse - Related Data Allergies Allergy/AdvReac Type Severity Reaction Status Date / Time lead [Lead] Allergy Itching Verified 02/05/16 23:11 lisinopril [From Zestril] Allergy Bronchospas Verified 02/05/16 23:11 ms mold Allergy Other Verified 02/05/16 23:11 nickel [Nickel] Allergy Itching Verified 02/05/16 23:11 felodipine [From Plendil] AdvReac Fluid Verified 02/05/16 23:11 Retention environmental seasonal Allergy Itching Uncoded 02/05/16 23:11 Home Meds: Home Meds Acetaminophen 500 mg PO Q4HR PRN 08/02/13 [History] Albuterol [Ventolin HFA] 2 puff INH Q4H PRN 08/02/13 [History] Aspirin [Halfprin] 162 mg PO DAILY 08/02/13 [History] Cholecalciferol (Vitamin D3) [Vitamin D3] 2,000 units PO BID 08/02/13 [History] Loratadine 10 mg PO DAILY PRN 08/02/13 [History] Losartan [Cozaar] 100 mg PO DAILY 08/02/13 [History] Nitroglycerin [Nitrostat] 0.3 mg SL ASDIRECTED PRN 08/02/13 [History] Omeprazole 20 mg PO DAILY 08/02/13 [History] PEG 400/Propylene Glycol/PF [Systane Lubricant] 1 drop EYEBOTH Q4HR PRN [History] Potassium Chloride 10 meq PO BID 08/02/13 [History] Rosuvastatin [Crestor] 5 mg PO DAILY 08/02/13 [History] Tiotropium [Spiriva Handihaler] 1 cap INH DAILY 08/02/13 [History] Fluticasone/Salmeterol [Advair 250-50] 1 puff INH BID 07/19/15 [History] Albuterol [Proventil Neb Soln] 2.5 mg NEB Q4H PRN 02/06/16 [History] Calcium Carbonate/Vitamin D3 [Calcium 1,000 + D3 Caplet] 1 tab PO DAILY [History] Fluticasone Propionate [Flonase] 1 spray NASBOTH DAILY 02/06/16 [History] Fluticasone Propionate [Flonase] 1 spray NASBOTH DAILY@1900 PRN 02/06/16 [ History] Polyethylene Glycol 3350 [MiraLAX] 17 gm PO DAILY #30 packet 02/08/16 [Rx] Atropine/Diphenoxylate [Lomotil 0.025-2.5 MG] 1 tab PO TID PRN 11/25/16 [History ] Cyanocobalamin (Vitamin B-12) [B-12] 1,000 mcg PO DAILY 11/25/16 [History] Loperamide [Imodium] 2 mg PO ASDIRECTED PRN 11/25/16 [History] guaiFENesin [Guaifenesin ER] 600 mg PO BID PRN 11/25/16 [History] Propylene Glycol/Peg 400 [Systane 0.3-0.4% Eye Drops] 1 drop EYEBOTH Q4H PRN 07/03 [History] Carvedilol [Coreg] 12.5 mg PO BIDMEALS #60 tablet 12/07/16 [Rx] Furosemide [Lasix] 20 mg PO DAILY #30 tablet 12/07/16 [Rx] Potassium Chloride [Klor-Con 10] 30 meq PO BIDMEALS #180 tab.er 12/07/16 [Rx] Sertraline [Zoloft] 150 mg PO DAILY #50 tablet 12/07/16 [Rx] amLODIPine [Norvasc] 5 mg PO DAILY #30 tablet 12/07/16 [Rx] Past Medical History HEENT History: Reports: Allergic Rhinitis, Cataract, Impaired Vision Cardiovascular History: Reports: CAD, Heart Failure, High Cholesterol, Hypertension, Stents Other Cardiovascular History: PERIPHERAL EDEMA, MITRAL VALVE DISORDER Respiratory History: Reports: COPD, Other (See Below) Other Respiratory History: HYPERVENTILATION, MULTIPLE LUNG NODULES, PANLOBULAR EMPHYSEMA Gastrointestinal History: Reports: Diverticulosis, GERD, Helicobacter Pylori, Irritable Bowel Syndrome Musculoskeletal History: Reports: Arthritis, Neck Pain, Chronic, Osteoporosis, Other (See Below) Other Musculoskeletal History: RLS, Psychiatric History: Reports: Anxiety Endocrine/Metabolic History: Reports: Osteopenia Hematologic History: Reports: Anemia, B12 Deficiency, Other (See Below) Other Hematologic History: VIT D DEF Dermatologic History: Reports: Urticaria, Other (See Below) Other Dermatologic History: ALOPECIA - Infectious Disease History Infectious Disease History: Reports: Helicobacter Pylori, MRSA - Past Surgical History HEENT Surgical History: Reports: Cataract Surgery Cardiovascular Surgical History: Reports: Carotid Stents, Other (See Below) Musculoskeletal Surgical History: Reports: Other (See Below) Oncologic Surgical History: Reports: Biopsy of Breast, Lumpectomy Social & Family History - Tobacco Use Smoking Status *Q: Former Smoker Years of Tobacco use: 42 Packs/Tins Daily: 1 Used Tobacco, but Quit: Yes Month Tobacco Last Used: unknown Second Hand Smoke Exposure: Yes - Caffeine Use Caffeine Use: Reports: Coffee - Alcohol Use Days Per Week of Alcohol Use: 0 - Recreational Drug Use Recreational Drug Use: No ED ROS GENERAL - Review of Systems Review Of Systems: See Below Constitutional: Reports: Weakness. Denies: Fever, Chills Respiratory: Reports: Shortness of Breath, Wheezing. Denies: Cough, Sputum Cardiovascular: Denies: Chest Pain, Palpitations GI/Abdominal: Denies: Abdominal Pain, Nausea, Vomiting Skin: Reports: No Symptoms Neurological: Reports: Dizziness. Denies: Headache, Numbness, Paresthesia, Tingling ED EXAM, GENERAL - Physical Exam Exam: See Below Exam Limited By: No Limitations General Appearance: Alert, Moderate Distress, Thin, Cachetic Respiratory/Chest: Decreased Breath Sounds, Crackles, Wheezing Cardiovascular: Normal Peripheral Pulses, Regular Rate, Rhythm, No Edema Peripheral Pulses: 2+: Radial (L), Radial (R) GI/Abdominal: Soft, Non-Tender, Abnormal Bowel Sounds (Hypoactive) Extremities: Normal Inspection Neurological: Alert, Oriented Skin Exam: Warm, Dry, Intact, Normal Color, No Rash EKG INTERPRETATION EKG Date: 02/03/17 Time: 18:12 Rhythm: NSR Rate (Beats/Min): 89 Blanco: Normal P-Wave: Present QRS: RBBB ST-T: Normal QT: Normal SD/PQ Interval: 0.14 Comparison: No Change EKG Interpretation Comments: 1. Sinus Rhythm with occasional SVT complexes 2. RBBB 3. Left anterior fascicular block Course - Vital Signs Last Recorded V/S: Last Vital Signs Temp 38.4 C H 02/03/17 19:01 Pulse 87 02/03/17 19:01 Resp 30 H 02/03/17 19:01 BP 198/75 H 02/03/17 19:01 Pulse Ox - Orders/Labs/Meds Orders: Active Orders 24 hr Category Date Time Status RT Post Treatment Assessment [RC] Click To Edit Care 02/03/17 18:11 Active RT Pre-Treatment Assessment [RC] Click To Edit Care 02/03/17 18:11 Active Chest 1V Frontal [CR] Stat Exams 02/03/17 18:10 Taken Sodium Chloride 0.9% [Saline Flush] Med 02/03/17 18:10 Active 10 ml FLUSH ASDIRECTED PRN Peripheral IV Insertion Adult [OM.PC] Routine Oth 02/03/17 18:10 Ordered Medication Orders Sodium Chloride (Saline Flush) 10 ml FLUSH ASDIRECTED PRN PRN Reason: Keep Vein Open Last Admin: 02/03/17 18:31 Dose: 10 ml Labs: Laboratory Tests 02/03/17 02/03/17 02/03/17 Range/Units 18:15 18:15 18:15 WBC 18.3 H (4.0-10.0) x10^3/uL RBC 3.78 L (4.00-5.50) x10^6/uL Hgb 10.0 L (12.0-16.0) g/dL Hct 32.0 L (33.0-47.0) % MCV 84.7 (78.0-93.0) fL MCH 26.5 (26.0-32.0) pg MCHC 31.3 L (32.0-36.0) g/dL RDW Coeff of Luisito 14.7 (10.0-15.0) % Plt Count 191 (130-400) x10^3/uL Neut % (Auto) 87.7 H (50.0-80.0) % Lymph % (Auto) 4.1 L (25.0-50.0) % [place] % (Auto) 7.2 (2.0-11.0) % Eos % (Auto) 0.8 (0.0-4.0) % Baso % (Auto) 0.2 (0.2-1.2) % POC ABG pH (7.35-7.45) POC ABG pCO2 (35-45) mmHG POC ABG pO2 (80-105) mmHG POC ABG HCO3 (22-26) mmol/L POC ABG Total CO2 (23-27) mmol/L POC ABG O2 Sat (95-98) % POC ABG Base Excess (-2-3) mmol/L POC FiO2 Sodium 140 (136-145) mmol/L Potassium 3.9 (3.5-5.1) mmol/L Chloride 104 (98-107) mmol/L Carbon Dioxide 27 (21-32) mmol/L BUN 16 (7-18) mg/dL Creatinine 1.0 (0.55-1.02) mg/dL Est Cr Clr Drug Dosing 36.21 mL/min Estimated GFR (MDRD) 55 Glucose 105 (74-106) mg/dL Lactic Acid 0.9 (0.4-2.0) mmol/L Calcium 8.8 (8.5-10.1) mg/dL Corrected Calcium 9.28 (8.5-10.1) mg/dL Phosphorus 3.7 (2.6-4.7) mg/dL Magnesium 2.0 (1.8-2.4) mg/dL Total Bilirubin 0.3 (0.2-1.0) mg/dL AST 20 (15-37) U/L ALT 17 (14-59) U/L Alkaline Phosphatase 71 (46-116) U/L Creatine Kinase 33 (26-192) U/L Creatine Kinase Index 1.5 (0.0-4.0) % CK-MB (CK-2) 0.5 (0.0-3.6) ng/mL Troponin I 0.033 (<=0.056) ng/mL C-Reactive Protein 4.4 H (<=0.9) mg/dL Total Protein 7.1 (6.4-8.2) g/dL Albumin 3.4 (3.4-5.0) g/dL Globulin 3.7 Albumin/Globulin Ratio 0.92 07/20/17 Range/Units 18:39 WBC (4.0-10.0) x10^3/uL RBC (4.00-5.50) x10^6/uL Hgb (12.0-16.0) g/dL Hct (33.0-47.0) % MCV (78.0-93.0) fL MCH (26.0-32.0) pg MCHC (32.0-36.0) g/dL RDW Coeff of Luisito (10.0-15.0) % Plt Count (130-400) x10^3/uL Neut % (Auto) (50.0-80.0) % Lymph % (Auto) (25.0-50.0) % [place] % (Auto) (2.0-11.0) % Eos % (Auto) (0.0-4.0) % Baso % (Auto) (0.2-1.2) % POC ABG pH 7.450 (7.35-7.45) POC ABG pCO2 36 (35-45) mmHG POC ABG pO2 71 L (80-105) mmHG POC ABG HCO3 25 (22-26) mmol/L POC ABG Total CO2 26 (23-27) mmol/L POC ABG O2 Sat 95 (95-98) % POC ABG Base Excess 1 (-2-3) mmol/L POC FiO2 0.36 Sodium (136-145) mmol/L Potassium (3.5-5.1) mmol/L Chloride (98-107) mmol/L Carbon Dioxide (21-32) mmol/L BUN (7-18) mg/dL Creatinine (0.55-1.02) mg/dL Est Cr Clr Drug Dosing mL/min Estimated GFR (MDRD) Glucose (74-106) mg/dL Lactic Acid (0.4-2.0) mmol/L Calcium (8.5-10.1) mg/dL Corrected Calcium (8.5-10.1) mg/dL Phosphorus (2.6-4.7) mg/dL Magnesium (1.8-2.4) mg/dL Total Bilirubin (0.2-1.0) mg/dL AST (15-37) U/L ALT (14-59) U/L Alkaline Phosphatase (46-116) U/L Creatine Kinase (26-192) U/L Creatine Kinase Index (0.0-4.0) % CK-MB (CK-2) (0.0-3.6) ng/mL Troponin I (<=0.056) ng/mL C-Reactive Protein (<=0.9) mg/dL Total Protein (6.4-8.2) g/dL Albumin (3.4-5.0) g/dL Globulin Albumin/Globulin Ratio Meds: Medications Generic Name Dose Route Start Last Admin Trade Name Freq PRN Reason Stop Dose Admin Sodium Chloride 10 ml 02/03/17 18:10 02/03/17 18:31 Saline Flush FLUSH 10 ml ASDIRECTED PRN Administration Keep Vein Open Discontinued Medications Generic Name Dose Route Start Last Admin Trade Name Freq PRN Reason Stop Dose Admin Levalbuterol HCl 1.25 mg 02/03/17 18:10 02/03/17 18:21 Xopenex NEB 02/03/17 18:11 1.25 mg ONETIME ONE Administration Methylprednisolone Sodium Succinate 125 mg 02/03/17 18:11 02/03/17 18:31 Solu-Medrol IVPUSH 02/03/17 18:12 125 mg ONETIME ONE Administration Departure - Departure Time of Disposition: 19:20 Disposition: DC/Tfer to Acute Hospital 02 Condition: Fair Clinical Impression: Acute exacerbation of chronic obstructive pulmonary disease, Hypophosphatemia Leukocytosis Qualifiers: Leukocytosis type: unspecified Qualified Code(s): D72.829 - Elevated white blood cell count, unspecified - Discharge Information Forms: Interfacility Transfer [facility] ED Communication - ED Communication Date/Time Date: 02/03/17 Time Called: 19:11 - Discussed Case With (1) Discussed Case With (1): Admitting Provider (Dr. Gann, [facility]) - Conversation Summary Admitting Provider Agreed to Patient's Admission: Yes Patient Aware of Amendments fo Care Plan: Yes - Problem List Review Problem List Initiated/Reviewed/Updated: Yes - My Orders Last 24 Hours: My Active Orders 02/03/17 18:10 Chest 1V Frontal [CR] Stat Sodium Chloride 0.9% [Saline Flush] 10 ml FLUSH ASDIRECTED PRN Peripheral IV Insertion Adult [OM.PC] Routine 02/03/17 18:11 RT Post Treatment Assessment [RC] Click To Edit RT Pre-Treatment Assessment [RC] Click To Edit - Assessment/Plan Last 24 Hours: My Active Orders 02/03/17 18:10 Chest 1V Frontal [CR] Stat Sodium Chloride 0.9% [Saline Flush] 10 ml FLUSH ASDIRECTED PRN Peripheral IV Insertion Adult [OM.PC] Routine 02/03/17 18:11 RT Post Treatment Assessment [RC] Click To Edit RT Pre-Treatment Assessment [RC] Click To Edit Plan: Case discussed Dr. Gann, Hospitalist. Patient accepted in transfer. Report given. Patient will be transferred ALS ground.
[2017-02-03] MEDS ORDERED: Sodium Chloride 0.9% 1,000 ML IV SCH (19:30)
[2017-02-03 19:51] VITALS: BP 160/50
== END 2017-02-03 19:50 | disposition short-term general hospital (02) ==
LOC: VM.ED 18:04
DX: J44.1 Chronic obstructive pulmonary disease with (acute) exacerbation (principal); D72.829 Elevated white blood cell count, unspecified; E83.39 Other disorders of phosphorus metabolism; I11.0 Hypertensive heart disease with heart failure; I50.9 Heart failure, unspecified; I25.10 Atherosclerotic heart disease of native coronary artery without angina pectoris; F41.9 Anxiety disorder, unspecified; M19.90 Unspecified osteoarthritis, unspecified site; M81.0 Age-related osteoporosis without current pathological fracture; Z98.49 Cataract extraction status, unspecified eye; Z95.5 Presence of coronary angioplasty implant and graft; Z98.890 Other specified postprocedural states; Z87.891 Personal history of nicotine dependence; Z79.82 Long term (current) use of aspirin; Z79.899 Other long term (current) drug therapy; Z88.8 Allergy status to other drugs, medicaments and biological substances; Z91.09 Other allergy status, other than to drugs and biological substances
CPT/HCPCS: 36415; 36600; 71010; 80053; 82550; 82553; 82803; 83605; 83735; 84100; 84484; 85025; 86140; 94640; 96365; 96375; 99284; J2930; J7030; J7050

== ENCOUNTER 2017-10-19 14:19 | Inpatient (IN) | payer MEDICARE, BC ==
[2017-10-19] MEDS ORDERED: Fluticasone Propionate Nasal Spray 16 GM Bottle NASBOTH PRN (14:40)
[2017-10-19] MEDS ORDERED: Albuterol 0.083% 2.5 MG/3 ML Neb Soln NEB PRN (14:40)
[2017-10-19] MEDS ORDERED: Non-Formulary Medication 1 Each (Propylene Glycol/Peg 400 [Systane 0.3-0.4% Eye Drops] 1 D EYEBOTH PRN (14:40)
[2017-10-19] MEDS ORDERED: Acetaminophen 500 MG Tab PO PRN (14:40)
[2017-10-19] MEDS ORDERED: Loratadine 10 MG Tab PO PRN (14:40)
[2017-10-19] MEDS ORDERED: Polyethylene Glycol 3350 Powder 17 GM Packet PO PRN (14:40)
[2017-10-19] MEDS ORDERED: Take Home: Albuterol 6.7 GM Inhaler, 1 Inhaler Pack INH PRN (14:40)
[2017-10-19] MEDS ORDERED: guaiFENesin 600 MG Tab.ER PO PRN (14:40)
[2017-10-19] MEDS ORDERED: Lactated Ringers 1,000 ML IV SCH (14:45)
[2017-10-19] MEDS ORDERED: Non-Formulary Medication 1 Each (Denosumab [Prolia] 60 MG) SUBCUT SCH (14:45)
[2017-10-19] MEDS ORDERED: Piperacillin/Tazobactam 4.5 GM in Sodium Chloride 0.9% 100 ML IV ONE (15:00)
[2017-10-19] MEDS ORDERED: SODIUM CHLORIDE 0.9% IV ONE (15:00)
[2017-10-19] MEDS ORDERED: methylPREDNISolone Sod Succ 125 MG in Sodium Chloride 0.9% 100 ML IV SCH (15:00)
[2017-10-19] MEDS ORDERED: VANCOMYCIN IV ONE (15:00)
[2017-10-19] MEDS ORDERED: Sodium Chloride 0.9% 1,000 ML IV SCH (15:45)
[2017-10-19] MEDS: methylPREDNISolone Sodium Succinate 125 MG/2 ML SDV IVPUSH SCH ×2 (15:51→23:24)
[2017-10-19 15:55] LABS: CHLORIDE,CL 102 mmol/L (98-107); SODIUM,NA 139 mmol/L (136-145)
[2017-10-19] MEDS ORDERED: WATER IV ONE (16:00)
[2017-10-19] MEDS ORDERED: [UNRECOGNIZED DRUG - OTHER] IV ONE (16:00)
[2017-10-19] MEDS ORDERED: LEVOFLOXACIN IV ONE (16:00)
[2017-10-19] MEDS ORDERED: Dextran 70/Hypromellose/PF Ophth Soln 0.9 ML UD EYEBOTH PRN (16:30)
[2017-10-19] MEDS ORDERED: Nitroglycerin 0.4 MG Tab.SL SL PRN (16:30)
[2017-10-19] MEDS ORDERED: Omeprazole 20 MG Cap.CR PO SCH (17:00)
[2017-10-19] MEDS: Carvedilol 12.5 MG Tab PO SCH (17:25)
[2017-10-19] MEDS: Enoxaparin 30 MG/0.3 ML Syringe SUBCUT SCH (17:46)
[2017-10-19] MEDS: ALPRAZolam 0.25 MG Tab PO SCH (17:46)
[2017-10-19] MEDS ORDERED: Formoterol/Mometasone 200-5 MCG 8.8 GM Inhaler IH SCH ×2 (20:00)
[2017-10-19] MEDS: Calcium Carbonate/Vitamin D3 1250 MG-200 Unit Tab PO SCH (20:28)
[2017-10-19] MEDS: Cholecalciferol (Vitamin D3) 1,000 Unit Tab PO SCH (20:28)
[2017-10-19] MEDS: Albuterol 0.083% 2.5 MG/3 ML Neb Soln NEB SCH (20:28)
[2017-10-19] MEDS: Magnesium Oxide 400 MG Tab PO SCH (20:28)
[2017-10-19] MEDS: Acetaminophen 325 MG Tab PO PRN (20:29)
[2017-10-19] MEDS: Piperacillin/Tazobactam 3.375 GM in Sodium Chloride 0.9% 100 ML IV SCH (23:24)
--- NOTE | 2017-10-20 00:23 | HP ---
CHIEF COMPLAINT: Weakness with continued cough. HISTORY OF PRESENT ILLNESS: The patient is a 72-year-old female who has severe COPD, had almost end-stage disease, who has been doctoring significantly the past month with both her passenger attendant and myself. She has been seen on 09/02/2017, placed on prednisone taper 10 mg a day, and she had been switched from Brovana to Pulmicort from Anoro and using Spiriva inhaler and she had been under the care of palliative care, then on 09/23/2017, she was seen by Pulmonology and was going to try Trilogy for inhaler as well as Zithromax daily, then she was resumed on 10 mg half a pill daily by 09/30/2017. She had then been stopped from her Trilogy and resumed back on her Advair inhalers and Spiriva. The patient then on 10/13/2017, she had been increased on her prednisone to 10 mg a day, and on 10/14/2017, she had been placed on Bactrim DS 1 twice a day for 7 days as she had a previous history of MRSA pneumonitis in the past. Her last chest x-ray had been done on July 2017 and she had not had 1 since. The patient has been under palliative care, but not hospice care. She is on chronic oxygen. She does feel weaker. It is noted that her weight has dropped 3 pounds since 09/02 from 99 pounds, down to 96 pounds. The patient denies any thrush. She denies any diarrhea. 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 The patient comments that her chest hurts, it is burning and sore from coughing. MEDICATIONS: She is currently on prednisone 10 mg 1 pill daily; Spiriva 18 mcg 1 puff daily; Advair 250/50 one puff twice a day; magnesium oxide 400 mg 1 pill twice a day; sublingual nitroglycerin 0.3 mg q.5 minutes x3 p.r.n.; albuterol 0.08% nebs, she uses it 4 times a day scheduled and every 4 hours as needed; she had been on azithromycin 250 mg daily since 09/23/2017; albuterol MDI 2 puffs every 4 hours as needed; nystatin 1000 units/mL, takes 5 mL 4 times a day p.r.n. thrush; alprazolam 0.25 mg 1 pill every 12 hours as needed; Prilosec 20 mg 1 pill twice a day; Prolia 60 mg every 6 months injected; ferrous sulfate 325 1 pill daily; sodium chloride 3 mL inhaled twice a day; potassium effervescent 20 mEq 1 pill once a day; losartan 100 mg a half a pill daily; oxygen therapy 3 to 4 L at rest, 6 L with activity, 2 L at night; furosemide 40 mg a half a pill daily; vitamin D 2000 units 1 pill twice a day; Flonase 50 mcg 1 puff each nostril twice a day as needed; aspirin 81 mg 1 pill a day; Plavix 75 mg 1 pill a day; calcium with vitamin D 1 pill twice a day; carvedilol 12.5 mg 1 pill twice a day, Zoloft 100 mg 1-1/2 pills daily; Crestor 5 mg 1 pill a day; vitamin B12 1000 mcg pill 1 pill daily; Mucinex 600 mg 1 pill twice a day as needed; Acapella inhaler every 4 hours as needed; MiraLAX 1 packet 1 time a day as needed for constipation, half a scoop in 8 ounces of water; Systane eyedrops 1 drop every 12 hours as needed, Tylenol 500 mg 1 pill every 4 hours as needed, loratadine 10 mg 1 pill a day as needed for allergies. ALLERGIES: Zestril causes a cough, environmental allergies, lead causes itching, mold causes congestion, nickel causes lip swelling, Plendil causes fluid retention. PAST MEDICAL HISTORY: The patient has had neck pain since 2002, C5-6 radiculopathy with epidural shot. She has had dermatographic urticaria. She had H. pylori infection in 2006, irritable bowel syndrome, mitral valve disorder noted since 2006 with myxomatous changes in 2003. She has been on SBE prophylaxis, restless legs syndrome since 2008, multiple lung nodule since 2008, eczema since 2009. She has had coronary artery disease on 01/27/2010. She had 1 stent to her RCA at [facility] on 12/27/2012, had LAD 1 drug-eluting stent. She is on Plavix for cardiac calcifications noted on chest CT in 2014. On 02/04/2015, cardiac cath, no disease. On 01/24/2010 showed cardiac cath with 80% lesion to RCA and she was told to stay on aspirin and Plavix by her laboratory veterinarian. She has had a colonoscopy on 01/29/2011. She was noted to have vitamin B12 deficiency on 02/01/2012 and it is managed by oral medication. She has had panlobular emphysema. 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 Peak flow was noted to be 170 in 2013. The patient stopped Brovana and Pulmicort nebs in 09/2017. She has had 2nd toenails claudication in both legs on 06/06/2016. She had LINDA testing, right side was 0.91 in 2017, left ankle LINDA was 0.98. She has had osteoporosis since 2015. Due to much GERD, she was started on Prolia. In 2009, she had been started on Fosamax and she has resumed Prolia. She has had MRSA pneumonia on 11/15/2016, on Zosyn, vancomycin for 3 weeks. She had MRSA pneumonia on 03/18/2017, treated with Bactrim DS for 10 days. Had bilateral pneumonia in 2017. She had esophageal dysmotility noted by 02/06/2017. She had a video swallow esophagram, sent to [facility]. She has had anxiety disorder, arthritis, cataracts, chronic diastolic dysfunction, moderate by echo in 12/2012, injection fraction 65%, mild pulmonary hypertension. She has been on home oxygen since 2014. She had normal sleep study in 2017. No need for CPAP. She has had depression. She has had diverticula of her colon. She has had hypertension, gastroesophageal reflux disease. Last EGD was 05/23/2017, chronic gastritis with mild Schatzki ring, allergic rhinitis, peripheral edema, uveitis, vitamin D deficiency. Her last echo was on 05/10/2016. At that time, her ejection fraction was 60%. Could not calculate RV function. Pulmonary artery pressure was 25 previously. No mitral stenosis. No significant pulmonary regurgitation. Trivial tricuspid regurgitation. PAST SURGICAL HISTORY: She has had breast lumpectomy in 1997, cholecystectomy in 1988, Dupuytren's release on left hand in 2005. Cardiac stent in 2009. Colonoscopy 01/29/2011. Next scope should be in 10 years. Internal hemorrhoids and diverticulosis found. She had removal of part of her lung on the right on 06/04/2011 at [facility]. She has had cataract surgery on the right in 2016. EGD 05/23/2017. Appendectomy, breast surgery on the right, lumpectomy, coronary cath, and colonoscopy. FAMILY MEDICAL HISTORY: Mother had heart disease, coronary artery disease, had type 2 diabetes mellitus and cataracts. Father . Sister has had strabismus and retinal detachment. Son has had rheumatoid arthritis. SOCIAL HISTORY: The patient is . She used to be a heavy smoker, but quit. She had been a [employer] in the past and smoked half pack a day. She quit in 2001, rarely consumes alcohol. She has 3 children, 2 girls and 1 boy. She had a high school graduation. She is adventist. IMMUNIZATIONS: The patient had Zostavax on 11/17/2010. Tdap on 07/27/2013. Pneumococcal 23 on 08/30/2007 and 10/04/2012. Prevnar on 12/06/2014. She has had hepatitis A 2010. REVIEW OF SYSTEMS: Her weight has been quite slender. She has had thrush in the past. She does wear dentures. She does tend to have chronic burning in her mouth. Does have heartburn. Does have soreness in her chest. Does have productive cough. Does not have much of an appetite. No diarrhea. Does feel weak. Skin has been noted to be pale. Mood has been at times anxious. PHYSICAL EXAMINATION: General: Reveals a mildly ill-appearing female, sitting in a wheelchair accompanied by her . Vital signs: Her weight is 96 pounds. Blood pressure is 144/78, temperature is 96.4, pulse is 55, sats are 90%. Skin: Pale, warm, and dry. Mucous membranes dry and no thrush noted in her mouth. HEENT: Pupils are equal and react to light. Tympanic membranes normal bilaterally. Neck: Supple, no anterior cervical lymphadenopathy or thyromegaly. Heart: Regular rate and rhythm. Lungs: Inspiratory rhonchi in the right base. Left is quite reduced. Abdomen: Soft. No hepatosplenomegaly. Extremities: No edema. Neuro: To note, patient is fairly anxious, does appear quite weak, deconditioned. LABORATORY DATA: Chest x-ray was obtained, which I feel does show increased infiltrate on right lower lobe than previous clinic x-ray. Her lab that was done at [facility] shows white blood cell count 12.0, hemoglobin 13.0, platelets 208 with 92 segs, 4 lymphocytes. Sodium 139, potassium 4.5, creatinine 1.3, BUN 14, GFR 40, glucose 124, lactic acid 1.5, calcium 9.2, magnesium 2.1. AST 58, ALT 62, alkaline phosphatase 67. CRP 2.6. ProBNP elevated at 2000. Her EKG showed sinus bradycardia, prolonged QT interval, left anterior fascicular block, abnormal possible anterior infarct. IMPRESSION: 1. Complicated pneumonia. 2. Severe chronic obstructive pulmonary disease status post lung reduction surgery. 3. History of Methicillin-resistant Staphylococcus aureus pneumonitis and history of Mycobacterium avium complex. 4. Exacerbation of chronic obstructive pulmonary disease. 5. Exacerbation of congestive heart failure, chronic diastolic. 6. Coronary artery disease. 7. Weakness. 8. Dehydration. 9. Chronic anxiety disorder. 10.Osteoporosis. 11.Hypertension. PLAN: The patient will be admitted to acute care. Will do confer with Infectious Disease about which antibiotics to place the patient on and they had recommended both vancomycin as well as Levaquin and Zosyn. The patient will be placed on IV Solu-Medrol as well. I did offer opportunity to be sent to [place]. The patient's code level status is do not resuscitate, do not intubate. The patient's status is somewhat guarded. She does have almost terminal lung condition and may need to think about hospice care, continue her anxiolytics. The patient's lactic acid did come back normal, now elevated liver function tests are something new for patient that could be related to her medication. The patient's was present in the room as well and is aware of her status. GM10/19/2017 17:47:44 MODL: 10/20/2017 00:13:10 /[id number]
[2017-10-20] MEDS: ALPRAZolam 0.25 MG Tab PO PRN (01:12)
[2017-10-20] MEDS ORDERED: Sodium Chloride 0.9% 1,000 ML IV SCH ×2 (01:45→08:21)
[2017-10-20] MEDS: ALPRAZolam 0.25 MG Tab PO SCH ×2 (05:28→16:35)
[2017-10-20] MEDS: Omeprazole 20 MG Cap.CR PO SCH ×3 (05:48→16:35)
[2017-10-20] MEDS: methylPREDNISolone Sodium Succinate 125 MG/2 ML SDV IVPUSH SCH ×3 (07:21→23:41)
[2017-10-20] MEDS: Piperacillin/Tazobactam 3.375 GM in Sodium Chloride 0.9% 100 ML IV SCH ×3 (07:21→23:41)
[2017-10-20] MEDS: atorvaSTATin 10 MG Tab PO SCH (07:25)
[2017-10-20] MEDS: Cholecalciferol (Vitamin D3) 1,000 Unit Tab PO SCH ×2 (07:25→20:12)
[2017-10-20] MEDS: Magnesium Oxide 400 MG Tab PO SCH ×2 (07:25→20:12)
[2017-10-20] MEDS: Carvedilol 12.5 MG Tab PO SCH ×2 (07:26→17:07)
[2017-10-20] MEDS: Sertraline 100 MG Tab PO SCH (07:26)
[2017-10-20] MEDS: Calcium Carbonate/Vitamin D3 1250 MG-200 Unit Tab PO SCH ×2 (07:26→20:13)
[2017-10-20] MEDS: Clopidogrel 75 MG Tab PO SCH (07:27)
[2017-10-20] MEDS: Ferrous Sulfate 325 MG Tab PO SCH (07:27)
[2017-10-20] MEDS: Furosemide 20 MG Tab PO SCH (07:27)
[2017-10-20] MEDS: Aspirin 81 MG Tab.EC PO SCH (07:27)
[2017-10-20] MEDS: Cyanocobalamin (Vitamin B12) 1,000 MCG Tab PO SCH (07:27)
[2017-10-20] MEDS: Losartan 50 MG Tab PO SCH (07:27)
[2017-10-20] MEDS: Albuterol 0.083% 2.5 MG/3 ML Neb Soln NEB SCH ×4 (07:32→20:12)
[2017-10-20] MEDS: Formoterol/Mometasone 200-5 MCG 8.8 GM Inhaler IH SCH ×2 (07:33→20:13)
[2017-10-20] MEDS: Enoxaparin 30 MG/0.3 ML Syringe SUBCUT SCH (07:34)
[2017-10-20] MEDS: TIOTROPIUM 18 MCG INH SCH (07:35)
[2017-10-20] MEDS: Sodium Chloride 0.9% 10 ML Syringe IV PRN (07:36)
--- NOTE | 2017-10-20 10:22 | PN ---
Progress Note for CHE HOLMAN Date: 10/20/2017 Room #: VM.202 SUBJECTIVE: The patient is not certain if she feels much better today. She did rest last evening, still having somewhat of a cough. Does feel weak. accompanies her in the room. It was noted in reviewing her clinic chart, her last chest CT was in 12/2016. OBJECTIVE: Vital Signs: Her temperature is 36.5, pulse is 98, blood pressure is 149/89, sats are 94% on 2 L. Skin: Leonidas, warm, and dry. Mucous membranes are moist. Heart: Regular rate and rhythm. Lungs: Do have some inspiratory wheeze on left base that is more audible than yesterday; however, she has better air movement than yesterday. Abdomen: Soft. Extremities: No edema. LABORATORY DATA: Shows that her white blood cell count improved to 10.7 today, hemoglobin 12.9, platelets are 179 with 94 segs, 3.4 lymphocytes, 2 monocytes. Sodium 138, potassium 4.3, creatinine improved to 1.1. GFR improved to 49, glucose is 119. Lactic acid yesterday had stayed normal, 1.5 and then 1.8. Calcium is 8.5. AST has improved to 52 from 58, ALT improved to 56 from 62. Alkaline phosphatase normal at 62. CRP has improved to 2.2 from 2.6 and magnesium on admit was normal at 2.1. IMPRESSION: 1. Pneumonitis. 2. Severe chronic obstructive pulmonary disease. 3. Elevated liver function tests, slightly improved. 4. Dehydration, mild, improving. 5. Chronic anxiety disorder. 6. Hypertension. 7. Coronary artery disease. 8. Valvular heart disease. 9. History of methicillin-resistant Staphylococcus aureus pneumonia in the past. PLAN: We will do a CT scan today of the patient's lungs. We will continue her on Levaquin, vancomycin, and Zosyn until sputum cultures are available. The patient is still on isolation because of history of previous MRSA. We will reduce her IV fluid rate right now to avoid risk of worsening any sort of heart failure. Her EKG to note had been done yesterday on admission was normal sinus rhythm. The patient feels comfortable with current plan of care. GM10/20/2017 08:29:36 MODL: 10/20/2017 09:31:57 /[id number]
[2017-10-20] MEDS: VANCOMYCIN IV SCH (13:49)
[2017-10-20] MEDS: SODIUM CHLORIDE 0.9% IV SCH (13:49)
[2017-10-20] MEDS: Acetaminophen 325 MG Tab PO PRN (20:12)
[2017-10-21] MEDS: ALPRAZolam 0.25 MG Tab PO PRN (01:46)
[2017-10-21] MEDS: Omeprazole 20 MG Cap.CR PO SCH ×2 (06:10→17:33)
[2017-10-21] MEDS: Albuterol 0.083% 2.5 MG/3 ML Neb Soln NEB SCH ×4 (07:24→20:17)
[2017-10-21] MEDS: Enoxaparin 30 MG/0.3 ML Syringe SUBCUT SCH (08:13)
[2017-10-21] MEDS: Calcium Carbonate/Vitamin D3 1250 MG-200 Unit Tab PO SCH ×2 (08:16→20:17)
[2017-10-21] MEDS: atorvaSTATin 10 MG Tab PO SCH (08:17)
[2017-10-21] MEDS: ALPRAZolam 0.25 MG Tab PO SCH ×2 (08:18→20:18)
[2017-10-21] MEDS: Aspirin 81 MG Tab.EC PO SCH (08:19)
[2017-10-21] MEDS: Cholecalciferol (Vitamin D3) 1,000 Unit Tab PO SCH ×2 (08:19→20:17)
[2017-10-21] MEDS: Ferrous Sulfate 325 MG Tab PO SCH (08:19)
[2017-10-21] MEDS: Sertraline 100 MG Tab PO SCH (08:20)
[2017-10-21] MEDS: Magnesium Oxide 400 MG Tab PO SCH ×2 (08:20→20:20)
[2017-10-21] MEDS: Cyanocobalamin (Vitamin B12) 1,000 MCG Tab PO SCH (08:20)
[2017-10-21] MEDS: Furosemide 20 MG Tab PO SCH (08:20)
[2017-10-21] MEDS: Clopidogrel 75 MG Tab PO SCH (08:21)
[2017-10-21] MEDS: Losartan 50 MG Tab PO SCH (08:22)
[2017-10-21] MEDS: Carvedilol 12.5 MG Tab PO SCH ×2 (08:24→17:40)
[2017-10-21] MEDS: Formoterol/Mometasone 200-5 MCG 8.8 GM Inhaler IH SCH ×2 (08:25→20:16)
[2017-10-21] MEDS: methylPREDNISolone Sodium Succinate 125 MG/2 ML SDV IVPUSH SCH ×2 (08:26→16:09)
[2017-10-21] MEDS: Piperacillin/Tazobactam 3.375 GM in Sodium Chloride 0.9% 100 ML IV SCH ×2 (08:29→17:35)
[2017-10-21] MEDS ORDERED: Ondansetron 4 MG Tab.DIS PO PRN (08:35)
[2017-10-21] MEDS: TIOTROPIUM 18 MCG INH SCH (08:39)
[2017-10-21] MEDS ORDERED: Furosemide 20 MG/2 ML VIAL IV ONE (08:43)
--- NOTE | 2017-10-21 09:44 | PN ---
Progress Note for CHE HOLMAN Date: 10/21/2017 Room #: VM.202 SUBJECTIVE: The patient did feel a little bit nauseated last evening. She did eat some soda crackers that did help. She is breathing a little bit better, but it is noted that her blood pressure has gone up. The patient denies any chest pain or headache or dizziness. The patient is very inquisitive about lab results and results of items. To note yesterday, she had undergone a CT scan of her chest, which was read out as just having her severe emphysema and no pneumonia was felt to be present. However, on her right lower lobe area, there was problems with either pleural effusion versus pneumonia. She is still having a productive cough and her CRP had been elevated, so this is why it was felt that she does have an infectious process going on. OBJECTIVE: Vital Signs: Objectively, her weight is 46.1 kg which is up 2.3 kg from yesterday. Her blood pressure is 177/81 by machine. Her pulse is 66, saturations are 97% on 4 L. General: Objectively; she is alert, calmly sitting at the bed, slightly anxious. HEENT: Pharynx is normal. Heart: Regular rate and rhythm. Lungs: Have diminished breath sounds on bases. Abdomen: Soft. Extremities: No edema. LABORATORY DATA: Her lab today shows a white blood cell count is up to 20.6, hemoglobin 12.7. She is stable with 95% segs, 2% bands, 3 lymphocytes. Sodium 140, potassium 4.0, creatinine 1.1, GFR 49, glucose 127. Her AST has gone up to 123, ALT 62, proBNP is up to 2954 from 1999. Albumin 3.2. IMPRESSION: 1. Acute pneumonia. 2. Exacerbation of chronic obstructive pulmonary disease. 3. Exacerbation of congestive heart failure. 4. Chronic anxiety disorder. 5. Weakness. 6.. Elevated liver function tests. 7. Nausea. PLAN: We will stop the patient's maintenance IV fluids. We will give her 1 dose of Lasix 20 mg. We will give her Zofran for the nausea. We will recheck her liver enzymes tomorrow. We will continue her triple antibiotic therapy until sputum cultures are available. Her sputum Gram stain did show greater than 25 white blood cells per high-powered field and they will do a chest x-ray tomorrow on the patient for followup. GM10/21/2017 08:49:33 MODL: 10/21/2017 09:35:45 /[id number] MTDJose Angel
[2017-10-21] MEDS: SODIUM CHLORIDE 0.9% IV SCH (14:27)
[2017-10-21] MEDS: VANCOMYCIN IV SCH (14:27)
[2017-10-21] MEDS: WATER IV SCH (16:03)
[2017-10-21] MEDS: LEVOFLOXACIN IV SCH (16:03)
[2017-10-21] MEDS: [UNRECOGNIZED DRUG - OTHER] IV SCH (16:03)
[2017-10-21] MEDS: Sodium Chloride 0.9% 10 ML Syringe IV PRN (20:18)
[2017-10-22] MEDS: methylPREDNISolone Sodium Succinate 125 MG/2 ML SDV IVPUSH SCH ×2 (00:15→08:04)
[2017-10-22] MEDS: Piperacillin/Tazobactam 3.375 GM in Sodium Chloride 0.9% 100 ML IV SCH ×4 (00:16→23:56)
[2017-10-22] MEDS: Sodium Chloride 0.9% 10 ML Syringe IV PRN ×3 (00:16→23:57)
[2017-10-22] MEDS: Omeprazole 20 MG Cap.CR PO SCH ×2 (06:33→16:30)
[2017-10-22] MEDS: Albuterol 0.083% 2.5 MG/3 ML Neb Soln NEB SCH ×4 (06:33→20:18)
[2017-10-22] MEDS: Enoxaparin 30 MG/0.3 ML Syringe SUBCUT SCH (07:52)
[2017-10-22] MEDS: Aspirin 81 MG Tab.EC PO SCH (08:08)
[2017-10-22] MEDS: atorvaSTATin 10 MG Tab PO SCH (08:08)
[2017-10-22] MEDS: Sertraline 100 MG Tab PO SCH (08:08)
[2017-10-22] MEDS: Magnesium Oxide 400 MG Tab PO SCH ×2 (08:10→20:18)
[2017-10-22] MEDS: Cholecalciferol (Vitamin D3) 1,000 Unit Tab PO SCH ×2 (08:10→20:18)
[2017-10-22] MEDS: Losartan 50 MG Tab PO SCH (08:10)
[2017-10-22] MEDS: Ferrous Sulfate 325 MG Tab PO SCH (08:11)
[2017-10-22] MEDS: Cyanocobalamin (Vitamin B12) 1,000 MCG Tab PO SCH (08:11)
[2017-10-22] MEDS: Calcium Carbonate/Vitamin D3 1250 MG-200 Unit Tab PO SCH ×2 (08:17→20:18)
[2017-10-22] MEDS: Carvedilol 12.5 MG Tab PO SCH ×2 (08:19→18:22)
[2017-10-22] MEDS: Furosemide 20 MG Tab PO SCH (08:19)
[2017-10-22] MEDS: Clopidogrel 75 MG Tab PO SCH (08:20)
[2017-10-22] MEDS: TIOTROPIUM 18 MCG INH SCH (08:22)
[2017-10-22] MEDS: Formoterol/Mometasone 200-5 MCG 8.8 GM Inhaler IH SCH ×2 (08:23→20:17)
[2017-10-22] MEDS: ALPRAZolam 0.25 MG Tab PO SCH ×2 (08:24→20:18)
[2017-10-22] MEDS: Loperamide 2 MG Cap PO PRN ×2 (12:15→20:00)
--- NOTE | 2017-10-22 12:23 | PN ---
Progress Note for CHE HOLMAN Date: 10/22/2017 Room #: VM.202 SUBJECTIVE: The patient is a 72-year-old female who is starting to feel a little bit better. Her cough is nonproductive. She did ask for some MiraLAX yesterday and now she has had a loose stool this morning. She has worked with occupational therapy. Physical Therapy did not see the patient yesterday. The patient's sputum cultures just had bacteria present. AFB cultures had not been obtained yet. As noted, the patient's blood pressure in the evenings has been elevated and it is not when she has been anxious or nervous. The patient did receive a one time dose of Lasix yesterday to help with diuresis that did seem to help. OBJECTIVE: Vital Signs: Objectively, her weight today is 45.3 kg, which is down 0.8 kg from yesterday; her blood pressure is 161/94; temperature is 36.3; pulse is 93; saturations are 87% on 5 liters. General: The patient appears alert, more calm. Heart: Regular rate and rhythm. Lungs: Reveal some inspiratory crackles on right base with better air exchange. No wheezes appreciated. Abdomen: Soft, nontender. No right upper quadrant tenderness. Extremities: Lower extremities, no edema. LABORATORY DATA: Her white blood cell count has gone up to 30.4000 from 20.6 yesterday; hemoglobin was 15.2, up from 12.7; platelets are 277 with 95 segs and 1 monocyte. Sodium is 141, potassium is borderline low at 3.4, creatinine is 1.3. GFR is down to 30, glucose is 139, AST is up to 158, ALT is up to 91, alkaline phosphatase is 69. IMPRESSION: 1. Right pneumonia. 2. Exacerbation of chronic obstructive pulmonary disease. 3. Exacerbation of congestive heart failure. 4. Leukocytosis, suspect secondary to prednisone. 5. Mild hypokalemia. 6. Elevated liver function tests, which is worsening. 7. Hypertension. 8. Chronic anxiety disorder. PLAN: We will stop her IV Solu-Medrol and switch her to oral prednisone, which may help with white blood cell count as well as liver function tests. We will just observe her potassium right now. We will increase her losartan to 100 mg daily to cover for better blood pressure control. We will continue her on her Zosyn as well as vancomycin and Levaquin. We are awaiting AFB studies as well as sputum culture. The patient's activity will be increased to ambulating in the hallways. We will offer some Imodium for her loose stools. If her lab continues to worsen tomorrow, she may need transfer to a higher level care facility, but to note her lung condition is very serious and if not almost to the point of terminal. GM10/22/2017 10:19:50 MODL: 10/22/2017 11:12:16 /[id number]
[2017-10-22] MEDS ORDERED: Losartan 50 MG Tab PO ONE (12:49)
[2017-10-22] MEDS: VANCOMYCIN IV SCH (14:46)
[2017-10-22] MEDS: SODIUM CHLORIDE 0.9% IV SCH (14:46)
[2017-10-23] MEDS: Omeprazole 20 MG Cap.CR PO SCH ×2 (06:34→17:06)
[2017-10-23] MEDS: Albuterol 0.083% 2.5 MG/3 ML Neb Soln NEB SCH ×4 (06:34→20:11)
[2017-10-23] MEDS: Piperacillin/Tazobactam 3.375 GM in Sodium Chloride 0.9% 100 ML IV SCH ×2 (08:10→17:05)
[2017-10-23] MEDS: Sodium Chloride 0.9% 10 ML Syringe IV PRN ×4 (08:11→16:37)
[2017-10-23] MEDS: Enoxaparin 30 MG/0.3 ML Syringe SUBCUT SCH (08:14)
[2017-10-23] MEDS: Loperamide 2 MG Cap PO PRN (08:16)
[2017-10-23] MEDS: predniSONE 20 MG Tab PO SCH (08:17)
[2017-10-23] MEDS: Calcium Carbonate/Vitamin D3 1250 MG-200 Unit Tab PO SCH ×2 (08:17→20:11)
[2017-10-23] MEDS: Clopidogrel 75 MG Tab PO SCH (08:18)
[2017-10-23] MEDS: Ferrous Sulfate 325 MG Tab PO SCH (08:19)
[2017-10-23] MEDS: Sertraline 100 MG Tab PO SCH (08:19)
[2017-10-23] MEDS: Losartan 50 MG Tab PO SCH (08:20)
[2017-10-23] MEDS: Aspirin 81 MG Tab.EC PO SCH (08:22)
[2017-10-23] MEDS: Magnesium Oxide 400 MG Tab PO SCH ×2 (08:22→20:12)
[2017-10-23] MEDS: atorvaSTATin 10 MG Tab PO SCH (08:23)
[2017-10-23] MEDS: Cyanocobalamin (Vitamin B12) 1,000 MCG Tab PO SCH (08:23)
[2017-10-23] MEDS: Furosemide 20 MG Tab PO SCH (08:23)
[2017-10-23] MEDS: ALPRAZolam 0.25 MG Tab PO SCH (08:23)
[2017-10-23] MEDS: Carvedilol 12.5 MG Tab PO SCH ×2 (08:24→17:08)
[2017-10-23] MEDS: Cholecalciferol (Vitamin D3) 1,000 Unit Tab PO SCH ×2 (08:24→20:12)
[2017-10-23] MEDS: Formoterol/Mometasone 200-5 MCG 8.8 GM Inhaler IH SCH ×2 (08:27→20:13)
[2017-10-23] MEDS: TIOTROPIUM 18 MCG INH SCH (08:27)
[2017-10-23 08:40] LABS: CHLORIDE,CL 104 mmol/L (98-107); SODIUM,NA 142 mmol/L (136-145)
--- NOTE | 2017-10-23 12:22 | PN ---
Progress Note for CHE HOLMAN Date: 10/23/2017 Room #: VM.202 SUBJECTIVE: The patient is feeling a little bit stronger today. She says the lorazepam just makes her feel too draggy. It was not realized that she had been placed on a scheduled dose up here and she only takes it p.r.n. at home. She is not coughing up much stuff. She comments that her feet have noted some swelling present. She denies a sore throat. OBJECTIVE: Vital Signs: Her weight is 43.4, which is down 1.8 kg from yesterday. Neck: Her pharynx is normal. Lungs: Have inspiratory crackles on right base. Left is clear. Heart: Regular rate and rhythm. Abdomen: Soft. Extremities: Lower extremities, have trace edema on the top of her feet, none on her ankles. LABORATORY DATA: Today shows her white blood cell count is greatly improved to 16.1, hemoglobin 14.1 with platelets 211, 82 segs, 11 lymphocytes. Sedimentation rate is 11, which is normal. Sodium is 142, potassium down to 3.2, creatinine 1.2, GFR 44. Lactic acid normal at 1.5. LFTs are improved with AST 100, ALT 76. CRP is less than 0.02. Albumin is 3.2. Vancomycin trough yesterday was just slightly elevated at 10.3, normal being 10.0. IMPRESSION: 1. Right lower lobe pneumonia. 2. Exacerbation of chronic obstructive pulmonary disease. 3. Exacerbation of congestive heart failure. 4. Hypokalemia. 5. Severe chronic obstructive pulmonary disease. 6. Leukocytosis, improved. 7. Elevated liver function tests, improving. 8. Hypertension. 9. Thrush. PLAN: We did increase her losartan yesterday and her blood pressure has gotten slightly better, but there is still more elevated reading this morning. We will start her on oral Diflucan to help with her thrush. We will increase her oral potassium. We will have her start wearing her compression stockings and in general, I feel she is better. We will continue on her IV antibiotics because we are waiting sputum cultures and AFB test. GM10/23/2017 11:28:35 MODL: 10/23/2017 12:01:32 /[id number]
[2017-10-23] MEDS: VANCOMYCIN IV SCH (13:32)
[2017-10-23] MEDS: SODIUM CHLORIDE 0.9% IV SCH (13:32)
[2017-10-23] MEDS: Fluconazole 100 MG Tab PO SCH (13:35)
[2017-10-23] MEDS: LEVOFLOXACIN IV SCH (14:46)
[2017-10-23] MEDS: WATER IV SCH (14:46)
[2017-10-23] MEDS: [UNRECOGNIZED DRUG - OTHER] IV SCH (14:46)
[2017-10-23] MEDS: POTASSIUM BICARBONATE PO SCH (20:12)
[2017-10-23] MEDS: CIT AC PO SCH (20:12)
[2017-10-24] MEDS: Piperacillin/Tazobactam 3.375 GM in Sodium Chloride 0.9% 100 ML IV SCH ×2 (00:07→08:04)
[2017-10-24] MEDS: Sodium Chloride 0.9% 10 ML Syringe IV PRN ×2 (00:07→19:55)
[2017-10-24] MEDS: ALPRAZolam 0.25 MG Tab PO PRN (00:19)
[2017-10-24] MEDS: Omeprazole 20 MG Cap.CR PO SCH ×2 (06:09→17:41)
[2017-10-24] MEDS: Albuterol 0.083% 2.5 MG/3 ML Neb Soln NEB SCH ×4 (07:17→19:48)
[2017-10-24] MEDS: TIOTROPIUM 18 MCG INH SCH (09:06)
[2017-10-24] MEDS: Formoterol/Mometasone 200-5 MCG 8.8 GM Inhaler IH SCH ×2 (09:06→19:50)
[2017-10-24] MEDS: Calcium Carbonate/Vitamin D3 1250 MG-200 Unit Tab PO SCH ×2 (09:07→19:47)
[2017-10-24] MEDS: Carvedilol 12.5 MG Tab PO SCH ×2 (09:08→17:41)
[2017-10-24] MEDS: Fluconazole 100 MG Tab PO SCH (09:09)
[2017-10-24] MEDS: Aspirin 81 MG Tab.EC PO SCH (09:10)
[2017-10-24] MEDS: Cholecalciferol (Vitamin D3) 1,000 Unit Tab PO SCH ×2 (09:10→19:48)
[2017-10-24] MEDS: Clopidogrel 75 MG Tab PO SCH (09:10)
[2017-10-24] MEDS: Cyanocobalamin (Vitamin B12) 1,000 MCG Tab PO SCH (09:11)
[2017-10-24] MEDS: atorvaSTATin 10 MG Tab PO SCH (09:11)
[2017-10-24] MEDS: Ferrous Sulfate 325 MG Tab PO SCH (09:11)
[2017-10-24] MEDS: Enoxaparin 30 MG/0.3 ML Syringe SUBCUT SCH (09:12)
[2017-10-24] MEDS: Furosemide 20 MG Tab PO SCH (09:18)
[2017-10-24] MEDS: Losartan 50 MG Tab PO SCH (09:19)
[2017-10-24] MEDS: Lactobacillus Rhamnosus GG (Probiotic) Cap PO SCH (09:19)
[2017-10-24] MEDS: predniSONE 20 MG Tab PO SCH (09:19)
[2017-10-24] MEDS: Sertraline 100 MG Tab PO SCH (09:20)
[2017-10-24] MEDS: Magnesium Oxide 400 MG Tab PO SCH ×2 (09:20→19:47)
[2017-10-24] MEDS: CIT AC PO SCH ×2 (09:22→19:59)
[2017-10-24] MEDS: POTASSIUM BICARBONATE PO SCH ×2 (09:22→19:59)
--- NOTE | 2017-10-24 09:32 | PN ---
Progress Note for CHE HOLMAN Date: 10/24/2017 Room #: VM.202 SUBJECTIVE: The patient is starting to feel better. She is getting a little bit more stronger. She still has occasional cough, not feeling nearly short of breath. Her nausea feeling has gotten better. OBJECTIVE: Vital Signs: Her weight is down 1.4 kg from yesterday. Her temperature is 36.6, pulse is 61, blood pressure is 139/90, sats are 100% on 4 L. HEENT: Her pharynx does not reveal any thrush present. Heart: Regular rate and rhythm. Lungs: Clear on the left. Right has a small crackle. Abdomen: Soft. Lower Extremities: No edema. Neurologic: She is alert, pleasant to visit with. LABORATORY DATA: Shows her white blood cell count has improved to 14.8, hemoglobin 13.8, platelets are 174, 86 segs, 7 lymphocytes. Sodium is 142, potassium is up to 3.5, creatinine 1.0, GFR is 55. Magnesium is normal at 2.0. ProBNP has improved to 2739. IMPRESSION: 1. Right lower lobe pneumonia. 2. Exacerbation of congestive heart failure. 3. Exacerbation of chronic obstructive pulmonary disease. 4. Hypokalemia, improved. 5. Malnutrition. 6. Deconditioning. 7. Chronic anxiety disorder. PLAN: Physical therapy will work with the patient today. I did visit with the on-call Infectious Disease provider and since her sputum cultures so far are negative other than the yeast present and blood cultures have been negative, and now since she has been on IV antibiotics for 5 days and clinically improving greatly with improved white blood cell count, improved CRP that he felt that it would be okay to stop the Zosyn as well as stop the vancomycin, and we will continue her on Levaquin and this is given every other day, which can be switched to oral, but she would not be due for a dose until tomorrow and potentially the patient may be able to go home tomorrow depending on how she does with therapy today.Will repeat her chest xray today. AFB report did come back negative on sputum. GM10/24/2017 08:30:04 MODL: 10/24/2017 08:56:31 /[id number] JUANCARLOS
[2017-10-24] MEDS: Loperamide 2 MG Cap PO PRN ×2 (09:51→19:48)
[2017-10-25] MEDS: Omeprazole 20 MG Cap.CR PO SCH (06:11)
[2017-10-25] MEDS ORDERED: Levofloxacin 250 MG Tab PO SCH (07:00)
[2017-10-25] MEDS: Albuterol 0.083% 2.5 MG/3 ML Neb Soln NEB SCH ×2 (07:09→11:05)
[2017-10-25] MEDS: TIOTROPIUM 18 MCG INH SCH (07:31)
[2017-10-25] MEDS: Formoterol/Mometasone 200-5 MCG 8.8 GM Inhaler IH SCH (07:31)
[2017-10-25] MEDS: Enoxaparin 30 MG/0.3 ML Syringe SUBCUT SCH (07:31)
[2017-10-25] MEDS: Losartan 50 MG Tab PO SCH (07:32)
[2017-10-25] MEDS: Magnesium Oxide 400 MG Tab PO SCH (07:32)
[2017-10-25] MEDS: Calcium Carbonate/Vitamin D3 1250 MG-200 Unit Tab PO SCH (07:32)
[2017-10-25] MEDS: predniSONE 20 MG Tab PO SCH (07:32)
[2017-10-25] MEDS: Ferrous Sulfate 325 MG Tab PO SCH (07:32)
[2017-10-25] MEDS: Furosemide 20 MG Tab PO SCH (07:32)
[2017-10-25] MEDS: Clopidogrel 75 MG Tab PO SCH (07:33)
[2017-10-25] MEDS: Carvedilol 12.5 MG Tab PO SCH (07:33)
[2017-10-25] MEDS: Fluconazole 100 MG Tab PO SCH (07:33)
[2017-10-25] MEDS: Cyanocobalamin (Vitamin B12) 1,000 MCG Tab PO SCH (07:33)
[2017-10-25] MEDS: Aspirin 81 MG Tab.EC PO SCH (07:33)
[2017-10-25] MEDS: Lactobacillus Rhamnosus GG (Probiotic) Cap PO SCH (07:33)
[2017-10-25] MEDS: atorvaSTATin 10 MG Tab PO SCH (07:33)
[2017-10-25] MEDS: Cholecalciferol (Vitamin D3) 1,000 Unit Tab PO SCH (07:33)
[2017-10-25] MEDS: CIT AC PO SCH (07:34)
[2017-10-25] MEDS: POTASSIUM BICARBONATE PO SCH (07:34)
[2017-10-25] MEDS: Loperamide 2 MG Cap PO PRN (07:50)
[2017-10-25] MEDS ORDERED: Sertraline 50 MG Tab PO SCH (08:00)
[2017-10-25] MEDS ORDERED: Furosemide 20 MG Tab PO ONE (09:24)
[2017-10-25 10:10] VITALS: BP 144/89
--- NOTE | 2017-10-25 10:59 | PN ---
Progress Note for CHE HOLMAN Date: 10/25/2017 Room #: VM.202 SUBJECTIVE: The patient is feeling better. Not a short of breath. Starting to get her strength back. She is not nauseated. Not having diarrhea or constipation. She is about at her baseline. The patient has had palliative care. She is not interested in having home health on discharge. Yesterday, she was switched from taken off her IV antibiotics to just oral antibiotics for Levaquin and has not worsened. OBJECTIVE: VITAL SIGNS: Her weight is 43.1 kg, which is up 1 kg from yesterday. Her temperature is 36.7, pulse is 67, blood pressure is 146/87, respiratory rate is 19, and sats are 98 on 3 L at rest. GENERAL: She is alert, pleasant to visit with. HEENT: Her pharynx is normal. HEART: Regular rate and rhythm. Occasional ectopics. LUNGS: Have diminished breath sounds. No wheezes noted. ABDOMEN: Soft. EXTREMITIES: No edema. NEUROLOGIC: She is alert, pleasant to visit with. LABORATORY DATA: Her AFB initial smears came back negative and her sputum only had grown out with yeast. Her blood cultures are negative. Her white blood cell count 15.0, hemoglobin 13.5, platelets are 186, 84 segs, and 8 lymphocytes. Sodium 141, potassium 3.8, creatinine 1.0, GFR is 33, and glucose is 84. Magnesium was not checked today. Her AST is much improved to 41. ALT 57. Her proBNP is up to 3,135. Total protein 6.2. Chest x-ray yesterday was still read as being negative. However, I feel it looks much better expanded than previously. IMPRESSION: 1. Pneumonitis. 2. Exacerbation of congestive heart failure. 3. Exacerbation of chronic obstructive pulmonary disease. 4. Thrush. 5. Elevated LFTs, greatly improved. PLAN: We will increase her Lasix to 30 mg a day. We will have the patient continue with her Levaquin as her only antibiotic. We will have her return to see me in a week's time in the clinic for recheck. The patient's status is do not resuscitate, do not intubate. We will increase her Lasix to 30 mg a day. We will reduce her prednisone tomorrow to be just 20 mg a day until she is seen in the clinic. GM10/25/2017 09:24:15 MODL: 10/25/2017 09:48:50 /[id number]
[2017-10-26] MEDS ORDERED: predniSONE 20 MG Tab PO SCH (08:00)
[2017-10-26] MEDS ORDERED: Furosemide 20 MG Tab PO SCH (08:00)
--- NOTE | 2017-10-26 09:04 | DISCH ---
PRIMARY DIAGNOSES: 1. Pneumonia, complicated with severe COPD, history of lung reduction surgery. 2. Exacerbation of chronic obstructive pulmonary disease. 3. Exacerbation of congestive heart failure. 4. Thrush. 5. Elevated liver function tests. 6. Chronic anxiety disorder. 7. Hypertension. 8. Osteoporosis. 9. Hypokalemia. 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 SUMMARY ON HISTORY AND PHYSICAL: The patient is a 72-year-old female who has severe end-stage COPD, who presented to the clinic with being severely short of breath, who has been having problems over the past month with some pneumonitis. So, she has been placed on tapering dose of prednisone by her cloth examiner. She had been switched from different types of inhalers from Brovana to Pulmicort, from Anoro back to Spiriva. She has been seen by Palliative Care. She had been placed on a Trelegy inhaler that had not helped. She had been on Zithromax daily, which also had not quite taken care of her pneumonitis. The patient had then also been placed on prednisone because of previous history of MRSA for 5 days, but she just was getting weaker. Her weight had dropped 3 pounds down to 96 pounds by date of admit. The patient also has had a history of MRSA infection in the past as well as Mycobacterium avium complex and has felt that she needed further inpatient care to further attempt to treat her chronic conditions. PHYSICAL EXAMINATION: General: On admission showed that the patient was mildly ill appearing, sitting in a wheelchair. Vital Signs: Her weight was 96 pounds, blood pressure is 144/78, her temperature is 96.4, pulse 55, saturations were 98%. Lungs: Have rhonchi in the right base. Left was quite reduced. Abdomen: Soft. Extremities: No edema. LABORATORY DATA: A chest x-ray AFL preliminary report showed infiltrate on the right lower base, so it was different from her previous ones. Her labs done at [facility] showed white blood cell count of 12.0, hemoglobin of 13.0, platelets 208, 92 segs, 4 bands. Sodium 139, potassium 4.5, creatinine 1.3, BUN 14, GFR 40, glucose 124, lactic acid 1.5, calcium 9.2, magnesium 2.1. AST 58, ALT 62, alkaline phosphatase 67. CRP 2.6. ProBNP elevated at 2000. EKG: Sinus bradycardia, prolonged QT. SUMMARY OF HOSPITAL COURSE: I did confer with Infectious Disease on the phone and because of her previous history, she was started on both IV vancomycin as well as Levaquin and Zosyn. The patient did have AFB cultures obtained as well as sputum cultures and blood cultures. The patient's code level status on admission was DO NOT RESUSCITATE, DO NOT INTUBATE. The patient was very slow to improve. She had problems with nausea. She was given some IV fluids, however, was careful not to overhydrate her. Her weight had gone from 43.5 on admission up to 46.1 max, then down to 43.1 at the time of discharge, kg. Her temperature had stayed afebrile the whole time. Her blood pressure was noted to get significantly elevated and so it was up to 190/85, not certain if it was related to anxiety. Her dose of losartan was increased while she was hospitalized, also her dose of Lasix was increased as well as given some IV Lasix. To note, we were not able to increase her Coreg because her pulse stayed around the 60s for the most, is in the 60s to 50s. The patient received physical therapy and occupational therapy. To note, her white blood cells had gone up to 20.6000 by 10/21 and then 30.4. This was felt to reflect some IV Solu-Medrol that had been administered to the patient. So, the dose was reduced down. By 10/25, her white blood cell count was back to 15. Her hemoglobin had stayed therapeutic was 13.5 by 10/25. Platelets were acceptable. The patient's sodium stayed therapeutic. Her potassium did drop down to 3.2. She did require increased oral potassium dose and with the Lasix dose being increased, it was felt that she would stay on the higher dose of potassium at discharge. On 10/25/2017, her potassium was 3.8. Her creatinine stayed about the same. It was 1.0 at the time of discharge. Her lactic acid had been 1.5 on admission, it was 1.8 checked a few hours later. It was rechecked after white blood cell count went up to 30 and it stayed normal at 1.5. The patient's magnesium was therapeutic the whole time. This was carefully monitored. Her GFR was up to 55 at the time of discharge, and it was 40 on admission. Her LFTs on admission were 58. For her AST, it did max out of 158, did go back to 41 by 10/25. Her ALT was 62 on admission, maximized at 91 on 10/22 and reduced down to 57 on 10/25. Her CRP had been 2.6 on admission and then was down to 2.2 by the next day. When it was last checked on 10/23, it was less than 0.2. Her proBNP was 2000 on admission and had gone up to 2900 by 10/21 and then did slightly improve, but then on 10/25 it was up to 3135. Because the patient had some nausea, her lipase and amylase were checked. The both came back negative. Her vancomycin levels were monitored. Sputum showed yeast present for culture. Otherwise, no bacteria grew. Blood cultures were negative. AFB preliminary cultures were negative. Final reports are still pending. Chest x-ray has been read by Radiology through [place], never did comment about pneumonia, just about severe COPD. She did undergo a CT scan on 10/20/2017, which showed no acute problems, severe emphysema. However, the patient was having a productive cough. So, it was felt that she was actually being treated for pneumonia. The patient did have some anxiety. Xanax was used, but then felt overly sedated, so it was reduced to just to be used p.r.n. The patient did have physical therapy and occupational therapy work with the patient and did get much stronger. It was felt that she was back to her baseline and that she could go home. MEDICATIONS: At the time of discharge will be: Vitamin D 1000 units 2 pills twice a day; loratadine 10 mg 1 pill daily p.r.n.; aspirin 81 mg 1 pill daily; acetaminophen 500 mg q.4 hours p.r.n.; Spiriva HandiHaler 1 capsule daily; omeprazole 20 mg 1 pill twice a day; albuterol HFA inhaler 2 puffs q.4 hours p.r.n.; nitroglycerin 0.3 sublingual q.5 minutes x3 p.r.n.; losartan is going to be 100 mg 1 pill daily; Crestor 20 mg tablet she takes 5 mg daily; Advair 250/50 one puff twice a day; Flonase 1 spray to each nostril twice a day as needed; albuterol nebs 4 times a day as scheduled; guaifenesin 600 mg 1 pill daily p.r.n.; vitamin B12 1000 mcg 1 pill daily; Systane eyedrops 1 drop both eyes q.12 hours p.r.n.; carvedilol 12.5 mg 1 pill twice a day; Zoloft 100 mg, she takes 1-1/2 pills daily; Prolia 60 mg subcu every 6 months; Clopidogrel 75 mg 1 pill daily; prednisone will be 20 mg daily until her appointment and do hope to reduce her back to 10 mg after that; furosemide will be 30 mg daily; MiraLAX 17 g packet daily p.r.n.; magnesium 400 mg 1 pill twice a day; ferrous sulfate 325 one pill daily; alprazolam 0.25 mg q.12 hours p.r.n.; potassium will be 20 mEq, which she will take twice a day; calcium with vitamin D 1 pill twice a day; Lactobacillus 1 capsule daily; Levaquin 750 mg 1 pill every other day for 3 more tablets. PLAN: The patient will follow up to see me in a week's time in the clinic. She will continue on her home oxygen at her same rate. I would like to have her use a flutter valve 3 times a day as needed. We will have her continue to see Palliative Care. DISCUSSION: I do anticipate the patient to continue to decline from her severe COPD and most likely we will need to be rehospitalized with progression of her lung disease and may potentially within the next 6 months, so that is why hospice care will again strongly be encouraged on the patient when she is seen in the clinic for discharge. When she is seen for recheck in the clinic, she will need to have a repeat chest x-ray, CBC, comprehensive metabolic profile, magnesium level, CRP, proBNP level done. The patient also does actively follow with Pulmonology. GM10/25/2017 09:45:27 MODL: 10/26/2017 06:34:13 /[id number] JUANCARLOS
== END 2017-10-25 12:00 | disposition home or self-care (01) | DRG 867 ==
LOC: VM.MS 14:30
PROVIDERS: ADMIT Family Medicine; ATTEND Family Medicine
DX: A01.0 Typhoid fever (principal); J18.9 Pneumonia, unspecified organism; I50.33 Acute on chronic diastolic (congestive) heart failure; J44.0 Chronic obstructive pulmonary disease with (acute) lower respiratory infection; J44.1 Chronic obstructive pulmonary disease with (acute) exacerbation; E46 Unspecified protein-calorie malnutrition; Z68.1 Body mass index [BMI] 19.9 or less, adult; I11.0 Hypertensive heart disease with heart failure; I25.10 Atherosclerotic heart disease of native coronary artery without angina pectoris; F41.9 Anxiety disorder, unspecified; R53.1 Weakness; K58.1 Irritable bowel syndrome with constipation; G25.81 Restless legs syndrome; R91.8 Other nonspecific abnormal finding of lung field; E53.8 Deficiency of other specified B group vitamins; I73.9 Peripheral vascular disease, unspecified; M81.0 Age-related osteoporosis without current pathological fracture; K21.9 Gastro-esophageal reflux disease without esophagitis; K22.4 Dyskinesia of esophagus; M19.90 Unspecified osteoarthritis, unspecified site; B37.9 Candidiasis, unspecified; R79.89 Other specified abnormal findings of blood chemistry; E87.6 Hypokalemia; R11.0 Nausea; I07.1 Rheumatic tricuspid insufficiency; I27.20 Pulmonary hypertension, unspecified; F32.9 Major depressive disorder, single episode, unspecified; J30.9 Allergic rhinitis, unspecified; E55.9 Vitamin D deficiency, unspecified; Z90.49 Acquired absence of other specified parts of digestive tract; Z99.81 Dependence on supplemental oxygen; Z86.14 Personal history of Methicillin resistant Staphylococcus aureus infection; Z51.5 Encounter for palliative care; Z79.52 Long term (current) use of systemic steroids; Z79.02 Long term (current) use of antithrombotics/antiplatelets; Z90.2 Acquired absence of lung [part of]; Z79.82 Long term (current) use of aspirin; Z79.899 Other long term (current) drug therapy; Z88.8 Allergy status to other drugs, medicaments and biological substances; Z91.048 Other nonmedicinal substance allergy status; Z95.5 Presence of coronary angioplasty implant and graft; Z87.891 Personal history of nicotine dependence; E86.0 Dehydration; Z66 Do not resuscitate
CPT/HCPCS: 36415; 71046; 71250; 80048; 80053; 80202; 82150; 83605; 83690; 83735; 83880; 85025; 85652; 86140; 87015; 87040; 87070; 87077; 87116; 87205; 87206; 93005; 94640; 94760; 97110-GO; 97110-GP; 97161-GP; 97165-GO; 97530-GP; A9270-GY; J1650; J1940; J1956; J2543; J2930; J3370; J7030; J7050; J7620-GY